=== PATIENT | male | born 1955 | race Caucasian/White ===

== ENCOUNTER 2017-07-28 08:28 | Emergency (ER) | payer BC ==
--- NOTE | 2017-07-28 08:32 | UC ---
Ear Complaint HPI - HPI Summary HPI Summary: 62 year old male presents with bilateral ear cerumen. - History of Current Complaint Stated Complaint: RIGHT EAR COMPLAINT Time Seen by Provider: 07/28/17 08:31 Hx Obtained From: Patient Onset/Duration: Sudden Onset Severity Initially: Moderate Severity Currently: Moderate Pain Scale Used: 0-10 Numeric - 1 - Allergies/Home Medications Allergies/Adverse Reactions: Allergies Allergy/AdvReac Type Severity Reaction Status Date / Time No Known Allergies Allergy Verified 07/28/17 08:37 PMH/Surg Hx/FS Hx/Imm Hx Previously Healthy: Yes - Surgical History Surgical History: None - Family History Known Family History: Positive: None - Social History Alcohol Use: twice a month in the Summer only Substance Use Type: None Type: Cigarettes Amount Used/How Often: 1 PPD Length of Time of Smoking/Using Tobacco: 30 Years Have You Smoked in the Last Year: Yes Household Exposure Type: Cigarettes Review of Systems Constitutional: Negative Skin: Negative Eyes: Negative ENT: Ear Ache Respiratory: Negative Cardiovascular: Negative Gastrointestinal: Negative Genitourinary: Negative Motor: Negative Neurovascular: Negative Musculoskeletal: Negative Neurological: Negative Psychological: Negative All Other Systems Reviewed And Are Negative: Yes Physical Exam Triage Information Reviewed: Yes Vital Signs Reviewed: Yes Eye Exam: Normal ENT: Positive: Other: - bilateral ear cerumen impaction Dental Exam: Normal Neck exam: Normal Neck: Positive: 1 Respiratory Exam: Normal Cardiovascular Exam: Normal Abdominal Exam: Normal Musculoskeletal Exam: Normal Neurological Exam: Normal Psychological Exam: Normal Skin Exam: Normal Ear Complaint Course/Dx - Differential Dx/Diagnosis Provider Diagnoses: bilateral ear cerumen impaction Discharge - Discharge Plan Condition: Stable Disposition: HOME Prescriptions: Neomyc/Polym/HC 1% OTIC SUSP* [Cortisporin Otic Susp 1%*] 4 drop BOTH EARS QID # 1 btl Patient Education Materials: Otitis Externa (ED), Cerumen Impaction (ED) Referrals: Vadim Dykes MD [Primary Care Provider] -
[2017-07-28 08:38] VITALS: BP 133/83
== END 2017-07-28 09:11 | disposition home or self-care (01) ==
LOC: UCCORT 08:28
DX: H61.23 Impacted cerumen, bilateral (principal); F17.210 Nicotine dependence, cigarettes, uncomplicated
CPT/HCPCS: 99213; G0463

== ENCOUNTER 2017-11-07 17:58 | Emergency (ER) | payer BC ==
--- NOTE | 2017-11-07 18:13 | UC ---
Shortness of Breath HPI - HPI Summary HPI Summary: Mr. Phan is a 62 yo male presents to with SO. Pt states this morning developed discomfort under his left rib, LUQ and has developed SOB since this time. Pt denies cough. No fevers, chills. No n/v/d. no CP. Pt without h/o similar. No trauma. No analgesia taken. At triage, pt's room air oxygen was reported to be 85%. No sick contact. Do did not get flu vaccine Pt with 1/2 ppd tobacco Pt's medications reviewed this visit - History of Current Complaint Chief Complaint: UCRespiratory Stated Complaint: ABD PAIN,DIFFICULTY BREATHING Time Seen by Provider: 11/07/17 18:06 Hx Obtained From: Patient Onset/Duration: Sudden Onset Timing: Constant Dyspnea At: Exertion Associated Signs & Symptoms: Positive: Cough (Nonproductive) - Allergy/Home Medications Allergies/Adverse Reactions: Allergies Allergy/AdvReac Type Severity Reaction Status Date / Time No Known Allergies Allergy Verified 07/28/17 08:37 PMH/Surg Hx/FS Hx/Imm Hx Previously Healthy: Yes - Surgical History Surgical History: None - Social History Occupation: Retired Lives: With Family Alcohol Use: Occasionally Substance Use Type: None Smoking Status (MU): Current Every Day Smoker - 1/2 ppd Type: Cigarettes Amount Used/How Often: 1 PPD Length of Time of Smoking/Using Tobacco: 30 Years Have You Smoked in the Last Year: Yes Household Exposure Type: Cigarettes - Immunization History Most Recent Influenza Vaccination: 06/2017 Review of Systems Constitutional: Negative Respiratory: Shortness Of Breath Cardiovascular: Other - left lower rib pain, left upper abd pain All Other Systems Reviewed And Are Negative: Yes Physical Exam Triage Information Reviewed: Yes Appearance: Pain Distress Vital Signs: Initial Vital Signs Pulse Ox 87 11/07/17 17:58 Vital Signs Reviewed: Yes Eye Exam: Normal ENT Exam: Normal ENT: Positive: Normal ENT inspection, Hearing grossly normal, Pharynx normal Dental Exam: Normal Neck exam: Normal Neck: Positive: Supple, Nontender, No Lymphadenopathy Respiratory: Positive: Other: - inncreased WOB. + BS throughout worse with movement - improves with rest no accessory muscle use no pain with palpation lower ribs, abdomen - pt holds with some discomfort with deep breath Cardiovascular Exam: Normal Cardiovascular: Positive: RRR, No Murmur, Pulses Normal, Other: - + trace edema b/l LE Abdominal Exam: Normal Abdomen Description: Positive: Nontender, No Organomegaly, Soft Bowel Sounds: Positive: Present Musculoskeletal Exam: Normal Neurological Exam: Normal Neurological: Positive: Alert Psychological Exam: Normal Psychological: Positive: Normal Response To Family Skin Exam: Normal Diagnostics - EKG Cardiac Rate: NL, Other Rate Cardiac Rhythm: Sinus: Normal - 81, Other Rhythm: New - RBBB - new from 12/21/2012 ST Segment: Normal Shortness of Breath Dx - Course Course Of Treatment: PT presents with progressive SOB since this morning also with LUQ abd pain. Pt without other symptoms. Pt denies recent sick contact. No fevers, chills, rash. Pt noted to be hypoxic at triage. Pt with ikncreased WOB with any movement, activity. Will place on O2. saline lock. EkG. transfer to ED by EMS - pt in agreement with plan - Differential Dx/Diagnosis Provider Diagnoses: hypoxia, SOB Discharge - Discharge Plan Condition: Fair Disposition: TRANS HIGHER LVL OF CARE FAC Referrals: No Primary Care Phys,NOPCP [Primary Care Provider] -
[2017-11-07 18:39] VITALS: BP 116/70
== END 2017-11-07 18:52 | disposition short-term general hospital (02) ==
LOC: UCEAST 17:58
DX: R09.02 Hypoxemia (principal); R06.02 Shortness of breath; R10.12 Left upper quadrant pain; R07.81 Pleurodynia; R05 Cough; I45.10 Unspecified right bundle-branch block; F17.210 Nicotine dependence, cigarettes, uncomplicated
CPT/HCPCS: 93005; 99213; G0463

== ENCOUNTER 2017-11-07 19:10 | Observation (INO) | payer BC ==
[2017-11-07] MEDS ORDERED: NS 0.9% 1000 ML* 1,000 ML IV ONE ×2 (19:33→19:35)
--- NOTE | 2017-11-07 20:12 | RAD ---
INDICATION: Shortness of breath. COMPARISON: Most recent comparison chest x-ray is dated December 21, 2012 TECHNIQUE: Single AP portable view of the chest was obtained. FINDINGS: Image quality is compromised due to the relative inferiority of a portable chest x-ray. The heart and mediastinum exhibit normal size and contour. The lungs are grossly clear. There is no evidence of a large pleural effusion. Visualized bones are normal for the patient's age. IMPRESSION: No radiographic evidence for acute cardiopulmonary abnormality on this portable chest x-ray.
[2017-11-07 20:13] LABS: ABS Basophils 0 10^3/ul (0-0.2); ABS Eosinophils 0.1 10^3/ul (0-0.6); ABS Lymphocytes 1.7 10^3/ul (1.0-4.8); ABS Nucleated RBC 0 10^3/ul; Eosinophil % 0.8 % (0-6); Hematocrit 46 % (42-52); Hemoglobin 15.7 g/dl (14.0-18.0); Mean Corpuscular HGB Conc 34 g/dl (31-36); Mean Corpuscular Hemoglobin 30 pg (27-31); Mean Corpuscular Volume 88 fL (80-94); Mean Platelet Volume 8 um3 (7.4-10.4); Nucleated Red Blood Cells % 0.1; Platelet Count 174 10^3/ul (150-450); Red Blood Count 5.19 10^6/ul (4.0-5.4); Red Cell Distribution Width 13 % (10.5-15); White Blood Count 9.8 10^3/ul (3.5-10.8)
[2017-11-07 20:26] LABS: EGFR Non-African American 63.6 (>60)
[2017-11-07 20:30] LABS: INR 1.02 (0.77-1.02)
[2017-11-07] MEDS ORDERED: Iohexol 350* (CONTRAST) 500 ML MDV IV ONE (21:35)
[2017-11-07 22:04] LABS: Urine Appearance Clear; Urine Blood Negative (Negative); Urine Color Yellow; Urine Ketones Negative (Negative); Urine Protein Negative (Negative); Urine Specific Gravity 1.016 (1.010-1.030); Urine Urobilinogen Negative (Negative)
[2017-11-07] MEDS ORDERED: HYDROmorphone INJ* 1 MG/ML CARPUJECT SYRINGE ONE (22:45)
[2017-11-07] MEDS ORDERED: Ondansetron INJ* 2 MG/ML VIAL ONE (22:45)
[2017-11-07] MEDS ORDERED: HYDROmorphone INJ* 1 MG/ML CARPUJECT SYRINGE IV SLOW PU ONE (22:46)
[2017-11-07] MEDS ORDERED: Ondansetron INJ* 2 MG/ML VIAL IV ONE (22:46)
[2017-11-08] MEDS ORDERED: Enoxaparin(*) 100 MG/ML SYR ONE (01:31)
[2017-11-08] MEDS ORDERED: Enoxaparin(*) 150 MG/ML 1 ML SYRINGE SUBCUT ONE (02:00)
--- NOTE | 2017-11-08 02:10 | ED ---
Georgi George Nilda, scribed for Mainor Spann MD on 11/07/17 at 1939 . Abdominal Pain/Male - HPI Summary HPI Summary: This patient is a 62 year old M BIBA accompanied by with a chief complaint of severe constant LUQ pain since last night. The patient rates the pain 8/10 in severity. Symptoms aggravated by deep inspiration and movement, but alleviated by rest. Patient reports low grade fever, and denies SOB. Pt states hes not on daily medications and has no PSHx. Pt is a smoker. - History of Current Complaint Chief Complaint: EDAbdPain Stated Complaint: SOB Time Seen by Provider: 11/07/17 19:28 Hx Obtained From: Patient Onset/Duration: Sudden Onset, Lasting Days - yesterday, Still Present Timing: Constant Severity Currently: Severe Pain Intensity: 8 Pain Scale Used: 0-10 Numeric Location: Discrete At: LUQ Radiates: No Aggravating Factor(s): Movement, Deep Breaths Alleviating Factor(s): Other: - rest Associated Signs And Symptoms: Positive: Fever - Allergies/Home Medications Allergies/Adverse Reactions: Allergies Allergy/AdvReac Type Severity Reaction Status Date / Time No Known Allergies Allergy Verified 11/07/17 18:24 PMH/Surg Hx/FS Hx/Imm Hx Respiratory History: Reports: Other Respiratory Problems/Disorders - cough with syncope EENT History: Denies: Hx Deafness Infectious Disease History: No Infectious Disease History: Denies: Traveled Outside the [place] in Last 30 Days - Family History Known Family History: Negative: Hypertension, Diabetes - Social History Occupation: Employed Part-time Alcohol Use: Occasionally Substance Use Type: Reports: None Smoking Status (MU): Current Every Day Smoker Type: Cigarettes Amount Used/How Often: 1 PPD Length of Time of Smoking/Using Tobacco: 30 Years Have You Smoked in the Last Year: Yes Review of Systems Positive: Fever - low grade Negative: Shortness Of Breath Positive: Abdominal Pain - LUQ pain All Other Systems Reviewed And Are Negative: Yes Physical Exam - Summary Physical Exam Summary: VITAL SIGNS: Reviewed. GENERAL: Patient is a morbidly obese male who is lying comfortable in the stretcher. Patient is not in any acute respiratory distress. HEAD AND FACE: No signs of trauma. No ecchymosis, hematomas or skull depressions. No sinus tenderness. EYES: PERRLA, EOMI x 2, No injected conjunctiva, no nystagmus. EARS: Hearing grossly intact. Ear canals and tympanic membranes are within normal limits. MOUTH: Oropharynx within normal limits. NECK: Supple, trachea is midline, no adenopathy, no JVD, no carotid bruit, no c- spine tenderness, neck with full ROM. CHEST: Symmetric, no tenderness at palpation LUNGS: Clear to auscultation bilaterally. No wheezing or crackles. Decreased breath sounds bilat. CVS: Regular rate and rhythm, S1 and S2 present, no murmurs or gallops appreciated. ABDOMEN: Soft, non-tender. Mild abd distention. No rebound no guarding, and no masses palpated. Bowel sounds are normal. EXTREMITIES: FROM in all major joints, no edema, no cyanosis or clubbing. NEURO: Alert and oriented x 3. No acute neurological deficits. Speech is normal and follows commands. SKIN: Dry and warm Triage Information Reviewed: Yes Vital Signs On Initial Exam: Initial Vitals Temp Pulse Resp BP Pulse Ox 98.3 F 78 16 142/83 96 11/07/17 19:25 11/07/17 19:25 11/07/17 19:25 11/07/17 19:25 11/07/17 19:25 Vital Signs Reviewed: Yes Diagnostics - Vital Signs Vital Signs Temp Pulse Resp BP Pulse Ox 11/07/17 19:25 98.3 F 78 16 142/83 96 - Laboratory Result Diagrams: 11/07/17 19:55 11/07/17 19:55 Lab Statement: Any lab studies that have been ordered have been reviewed, and results considered in the medical decision making process. - Radiology CXR Radiology Interpretation Completed By: Radiologist - CXR reveals no radiographic evidence for acute cardiopulmonary abnormality on this portable chest x-ray. Dr. Spann has reviewed this radiology report. - CT CTA Chest/Abd/Pel CT Interpretation Completed By: Radiologist - Chest: No definite PE, but lower lobe evaluation significantly limited by motion artifact. If there is continued concern for PE, advise repeat CTA. No aortic dissection or aneurysm. No pneumonia. Trace left pleural fluid. Calcified bilateral hilar lymph nodes. Abdomen/Pelvis: No aortic dissection or aneurysm. No bowel obstruction, colitis , diverticulitis, free fluid or free air. Normal appendix. Unremarkable pancreas and kidneys. Cholelithiasis. Diastasis recti and small superimposed umbilical hernia containing fat. Small bilateral inguinal region hernias containing fat. Dr. Spann has reviewed this report. - EKG 2001 Cardiac Rate: NL EKG Rhythm: Sinus Rhythm - 75 bpm EKG Interpretation: Normal [place], RBBB Re-Evaluation - Re-Evaluation First Eval Re-Evaluation Time: 01:05 Comment: Reviewed labs and imaging with patient and plan to admit. Abdominal Pain Fem Course/Dx - Course Assessment/Plan: Pt is 62 y/o M who came to ED c/o left sided pleuritic CP. Pt was hypoxic. EKG showed signs of possible PE. CT chest was nonconclusive because of artifact. Pt given Lovenox. 0124 Dr. Thompson (hospitalist) agrees to admit. Pt admitted for further evaluation and possible VQ scan in morning. Dx left pleuritic CP, rule out PE. - Diagnoses Provider Diagnoses: Pleuritic chest pain, rule out pulmonary embolism - Provider Notifications Discussed Care Of Patient With: Norberto Thompson - hospitalist Time Discussed With Above Provider: 01:24 Instructed by Provider To: Admit As Inpatient Discharge - Discharge Plan Condition: Stable Disposition: ADMITTED TO [facility] Referrals: No Primary Care Phys,NOPCP [Primary Care Provider] - The documentation as recorded by the Georgi fischer Nilda accurately reflects the service I personally performed and the decisions made by Maria Ines jay Abdul, MD.
[2017-11-08] MEDS ORDERED: Iohexol 350* (CONTRAST) 500 ML MDV IV ONE (04:26)
[2017-11-08] MEDS ORDERED: oxyCODONE TAB* 5 MG TAB PO PRN (05:41)
[2017-11-08] MEDS ORDERED: Albuterol 2.5 MG/3 ML NEB.SOL* (0.083%) INH PRN (05:41)
[2017-11-08] MEDS ORDERED: Ondansetron INJ* 2 MG/ML VIAL IV PRN (05:41)
[2017-11-08] MEDS ORDERED: Acetaminophen TAB* 325 MG PO PRN (05:41)
[2017-11-08] MEDS ORDERED: CMCS: Melatonin (NF) 3 MG TAB PO PRN (05:41)
[2017-11-08] MEDS ORDERED: NS 0.9% 1000 ML* 1,000 ML IV SCH (05:45)
--- NOTE | 2017-11-08 05:45 | HP ---
H&P (Free Text) History and Physical: PCP: none Date/Time: 11/08/2017 0420 CC: chest pain, SOB HPI: Mr Phan is a 62YO healthy male presenting for onset of inferior L chest pain which awoke him from sleep overnight 11/06 - 11/07 and gradually worsened throughout the day ranging from 3-9/10 in severity. He denies cough, congestion , F/C, sweats, N/V, diarrhea, light-headedness, palpitations, or other issues. Pain meds have made it better, but taking a deep breath makes it worse. He denies pain or swelling of the lower extremities, no recent travel, and no change in activity or injuries. ED evaluation is notable for a d-dimer of 483 & a CTA chest non-diagnostic for the LLL 2nd sub-optimal timing. ECG shows sinus RBBB rate 75, Q-waves in II/III/AVF, no ischemia. 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 Father passed at 54 2nd suicide. ROS: as above, otherwise reviewed and all were negative vitals: Vital Signs Temp 36.8 C 11/08/17 03:17 Pulse 82 11/08/17 03:17 Resp 16 11/08/17 03:17 BP 134/72 11/08/17 03:17 Pulse Ox 100 11/08/17 03:17 Intake & Output 11/07/17 11/07/17 11/08/17 11:59 23:59 11:59 Intake Total 1000 Balance 1000 Weight 145.15 kg Intake: IV Fluids 1000 Constitutional: NAD, normally developed, morbidly obese white male HEENM: atraumatic; sclera/conjunctiva: anicteric/clear; hearing: clinically intact; oropharynx: clear, mucosa moist Neck: soft tissue: non-tender; thyroid: normal Pulmonary: clear to auscultation bilaterally, good aeration, no accessory muscle use CV: RR/RR, normal S1S2, no carotid bruit, no jugular venous distention, 2+ B DP/ PT, trace BLE edema Abdominal: soft, non-distended, non-tender, no rebound/guarding/rigidity, normoactive bowel sounds, no hepatosplenomegaly or masses, no costovertebral angle tenderness Musculoskeletal: general: grossly intact; gait: stable Integumental: normal appearance and texture of skin over inferior L chest Psychiatric orientation: AA&O to PPS affect: calm mood: cooperative eye contact: good content: reliable responses: timely insight: good Testing: Lab Results 11/07/17 11/07/17 11/07/17 Range/Units 19:55 19:55 19:55 WBC (3.5-10.8) 10^3/ul RBC (4.0-5.4) 10^6/ul Hgb (14.0-18.0) g/dl Hct (42-52) % MCV (80-94) fL MCH (27-31) pg MCHC (31-36) g/dl RDW (10.5-15) % Plt Count (150-450) 10^3/ul MPV (7.4-10.4) um3 Neut % (Auto) (38-83) % Lymph % (Auto) (25-47) % Ray % (Auto) (1-9) % Eos % (Auto) (0-6) % Baso % (Auto) (0-2) % Absolute Neuts (auto) (1.5-7.7) 10^3/ul Absolute Lymphs (auto) (1.0-4.8) 10^3/ul Absolute Monos (auto) (0-0.8) 10^3/ul Absolute Eos (auto) (0-0.6) 10^3/ul Absolute Basos (auto) (0-0.2) 10^3/ul Absolute Nucleated RBC 10^3/ul Nucleated RBC % INR (Anticoag Therapy) 1.02 (0.77-1.02) APTT 30.0 (26.0-36.3) seconds D-Dimer, Quantitative 483 H (Less Than 230) ng/mL Sodium 138 (133-145) mmol/L Potassium 3.9 (3.5-5.0) mmol/L Chloride 104 (101-111) mmol/L Carbon Dioxide 28 (22-32) mmol/L Anion Gap 6 (2-11) mmol/L BUN 14 (6-24) mg/dL Creatinine 1.17 (0.67-1.17) mg/dL Est GFR ( Amer) 81.8 (>60) Est GFR (Non-Af Amer) 63.6 (>60) BUN/Creatinine Ratio 12.0 (8-20) Glucose 111 H (70-100) mg/dL Lactic Acid (0.5-2.0) mmol/L Calcium 9.7 (8.6-10.3) mg/dL Magnesium 1.8 L (1.9-2.7) mg/dL Total Bilirubin 0.90 (0.2-1.0) mg/dL AST 13 (13-39) U/L ALT 16 (7-52) U/L Alkaline Phosphatase 70 (34-104) U/L Troponin I 0.01 (<0.04) ng/mL C-Reactive Protein 37.66 H (< 5.00) mg/L B-Natriuretic Peptide 26 ( - 100) pg/mL Total Protein 7.0 (6.4-8.9) g/dL Albumin 3.8 (3.2-5.2) g/dL Globulin 3.2 (2-4) g/dL Albumin/Globulin Ratio 1.2 (1-3) Amylase 18 L (29-103) U/L Lipase 18 (11.0-82.0) U/L Urine Color Urine Appearance Urine pH (5-9) Ur Specific [place] (1.010-1.030) Urine Protein (Negative) Urine Ketones (Negative) Urine Blood (Negative) Urine Nitrate (Negative) Urine Bilirubin (Negative) Urine Urobilinogen (Negative) Ur Leukocyte Esterase (Negative) Urine Glucose (Negative) 11/07/17 11/07/17 11/07/17 Range/Units 19:55 19:55 21:55 WBC 9.8 (3.5-10.8) 10^3/ul RBC 5.19 (4.0-5.4) 10^6/ul Hgb 15.7 (14.0-18.0) g/dl Hct 46 (42-52) % MCV 88 (80-94) fL MCH 30 (27-31) pg MCHC 34 (31-36) g/dl RDW 13 (10.5-15) % Plt Count 174 (150-450) 10^3/ul MPV 8 (7.4-10.4) um3 Neut % (Auto) 71.8 (38-83) % Lymph % (Auto) 17.0 L (25-47) % Ray % (Auto) 10.0 H (1-9) % Eos % (Auto) 0.8 (0-6) % Baso % (Auto) 0.4 (0-2) % Absolute Neuts (auto) 7.0 (1.5-7.7) 10^3/ul Absolute Lymphs (auto) 1.7 (1.0-4.8) 10^3/ul Absolute Monos (auto) 1.0 H (0-0.8) 10^3/ul Absolute Eos (auto) 0.1 (0-0.6) 10^3/ul Absolute Basos (auto) 0 (0-0.2) 10^3/ul Absolute Nucleated RBC 0 10^3/ul Nucleated RBC % 0.1 INR (Anticoag Therapy) (0.77-1.02) APTT (26.0-36.3) seconds D-Dimer, Quantitative (Less Than 230) ng/mL Sodium (133-145) mmol/L Potassium (3.5-5.0) mmol/L Chloride (101-111) mmol/L Carbon Dioxide (22-32) mmol/L Anion Gap (2-11) mmol/L BUN (6-24) mg/dL Creatinine (0.67-1.17) mg/dL Est GFR ( Amer) (>60) Est GFR (Non-Af Amer) (>60) BUN/Creatinine Ratio (8-20) Glucose (70-100) mg/dL Lactic Acid 0.9 (0.5-2.0) mmol/L Calcium (8.6-10.3) mg/dL Magnesium (1.9-2.7) mg/dL Total Bilirubin (0.2-1.0) mg/dL AST (13-39) U/L ALT (7-52) U/L Alkaline Phosphatase (34-104) U/L Troponin I (<0.04) ng/mL C-Reactive Protein (< 5.00) mg/L B-Natriuretic Peptide ( - 100) pg/mL Total Protein (6.4-8.9) g/dL Albumin (3.2-5.2) g/dL Globulin (2-4) g/dL Albumin/Globulin Ratio (1-3) Amylase (29-103) U/L Lipase (11.0-82.0) U/L Urine Color Yellow Urine Appearance Clear Urine pH 5.0 (5-9) Ur Specific [place] 1.016 (1.010-1.030) Urine Protein Negative (Negative) Urine Ketones Negative (Negative) Urine Blood Negative (Negative) Urine Nitrate Negative (Negative) Urine Bilirubin Negative (Negative) Urine Urobilinogen Negative (Negative) Ur Leukocyte Esterase Negative (Negative) Urine Glucose Negative (Negative) ECG, personally reviewed: sinus RBBB rate 75, Q-waves in II/III/AVF, no ischemia CXR, personally reviewed: IMPRESSION: No radiographic evidence for acute cardiopulmonary abnormality on this portable chest x-ray. Impression: morbidly obese 62M presenting with pleuritic inferior L chest pain, SOB, & elevated d-dimer; CTA chest sub-optimal timing for LLL DIAGNOSIS & PLAN Primary pleuritic chest pain, SOB, & elevated d-dimer; suspect PE : enoxaparin SQ 1mg/kg given in ED at 0200 : V/Q in AM : BLE venous US in AM : supplemental oxygen : pain control : telemetry : trend troponin : supportive care Admission Rational: observation for r/o PE DVTp: enoxaparin SQ Code Status: full
[2017-11-08] MEDS ORDERED: Omeprazole CAP* 20 MG PO SCH (06:00)
[2017-11-08 06:38] LABS: Hematocrit 45 % (42-52); Hemoglobin 15.6 g/dl (14.0-18.0); Mean Corpuscular HGB Conc 35 g/dl (31-36); Mean Corpuscular Hemoglobin 31 pg (27-31); Mean Corpuscular Volume 89 fL (80-94); Mean Platelet Volume 8 um3 (7.4-10.4); Platelet Count 191 10^3/ul (150-450); Red Blood Count 5.11 10^6/ul (4.0-5.4); Red Cell Distribution Width 14 % (10.5-15); White Blood Count 10.5 10^3/ul (3.5-10.8)
[2017-11-08 07:03] LABS: EGFR Non-African American 51.3 (>60)
--- NOTE | 2017-11-08 08:18 | RAD ---
HISTORY: Abdominal pain, pleuritic pain COMPARISONS: December 21, 2012, April 11 June 25, 2014 TECHNIQUE: Multiple contiguous axial CT scans were obtained of the chest, abdomen, and pelvis after the administration of intravenous contrast. Coronal and sagittal multiplanar reformations are submitted for review.. Oral contrast was administered. FINDINGS: Evaluation is limited by patient breathing motion artifact. This limits evaluation of the pulmonary artery segmental branches to the lower lobes bilaterally. CHEST NECK AND THYROID: The lower neck and thyroid are unremarkable. CHEST WALL: There is no lower cervical, axillary, or supraclavicular lymphadenopathy by size criteria. HEART AND PERICARDIUM: The heart is unremarkable. AORTA AND PULMONARY VASCULATURE: There is no appreciable pulmonary arterial filling defect to suggest pulmonary was in, though evaluation of the segmental branches to the lower lobes is limited by patient breathing motion artifact. The aorta is unremarkable. MEDIASTINUM: There is no mediastinal lymphadenopathy by size criteria. JAXON: There is no hilar lymphadenopathy by size criteria. AIRWAY AND ESOPHAGUS: The airway is unremarkable, without endobronchial filling defect. The esophagus is grossly normal. LUNG PARENCHYMA: The lungs are clear. PLEURA: There is a trace left pleural effusion. BONES AND SOFT TISSUES: Degenerative changes are noted of the spine ABDOMEN/PELVIS: LIVER: The liver is normal in shape, size, contour, and attenuation. BILE DUCTS: There is no intrahepatic or extrahepatic biliary dilatation. GALLBLADDER: Multiple gallstones are noted. There is no pericholecystic inflammatory change. PANCREAS: The pancreas is normal, without mass or ductal dilatation. SPLEEN: Normal in size and appearance. UPPER GI TRACT: Evaluation of the gastrointestinal tract is limited by incomplete gastric distention. The upper GI tract is unremarkable. SMALL BOWEL & MESENTERY: The small bowel is normal in contour, course, and caliber. There is no obstruction or dilatation. COLON: The colon is normal in contour, course, caliber. There is no pericolonic inflammatory change. There is a tubular, vermiform, hollow viscus that is blind ending, and originates from the cecum, consistent with a normal appendix. There is no periappendiceal inflammatory change. ADRENALS: Normal bilaterally. KIDNEYS: The kidneys are normal in shape, size, contour, and axis. There is no hydronephrosis or nephrolithiasis. BLADDER: The bladder is incompletely distended but is grossly normal. PELVIC ORGANS: The prostate gland is normal. The seminal vesicles are symmetric. AORTA: The aorta is normal. IVC: Unremarkable LYMPH NODES: There is no lymphadenopathy by size criteria. ABDOMINAL WALL: There is diastasis recti. There are small bilateral fat-containing inguinal hernias. BONES AND SOFT TISSUES: Degenerative changes are noted along the spine. OTHER: None IMPRESSION: 1. NO PULMONARY ARTERIAL FILLING DEFECT TO SUGGEST PULMONARY EMBOLISM; HOWEVER, EVALUATION OF THE SEGMENTAL BRANCHES OF THE LOWER LOBES BILATERALLY IS LIMITED BY PATIENT BREATHING MOTION ARTIFACT. 2. CHOLELITHIASIS WITHOUT PERICHOLECYSTIC INFLAMMATORY CHANGE. 3. SMALL BILATERAL FAT-CONTAINING INGUINAL HERNIAS.
[2017-11-08] MEDS ORDERED: Docusate CAP* 100 MG PO SCH (09:00)
--- NOTE | 2017-11-08 10:52 | RAD ---
HISTORY: Chest pain, shortness of breath, elevated d-dimer COMPARISONS: None relevant TECHNIQUE: Multiple transverse and longitudinal ultrasound images were obtained of the bilateral lower extremities from the level of the common femoral vein inferiorly through to the infrapopliteal veins using grayscale, color Doppler, and spectral Doppler imaging with and without compression and with augmentation. FINDINGS: VEINS: The venous system of the bilateral lower extremities is compressible throughout its course, with normal flow on color Doppler imaging and normal response to augmentation on spectral Doppler imaging. SOFT TISSUES: Unremarkable. OTHER FINDINGS: None. IMPRESSION: NO RIGHT LOWER EXTREMITY DEEP VEIN THROMBOSIS. NO LEFT LOWER EXTREMITY DEEP VEIN THROMBOSIS
[2017-11-08 11:31] VITALS: BP 120/58
--- NOTE | 2017-11-08 14:17 | RAD ---
INDICATION: Left-sided chest pain COMPARISON: CTA chest/abdomen/pelvis November 07, 2017 TECHNIQUE: Following the administration of 10.95 millicuries of xenon gas, anterior and posterior deep breath, equilibrium, and washout phase imaging was performed. Following the intravenous administration of 13.15 millicuries of technetium 99m, MAA, anterior, posterior, lateral, and oblique imaging of the chest was performed. FINDINGS: Ventilation images show normal ventilation. The perfusion images show no segmentally absent areas of ventilation/perfusion mismatch. The probability of acute pulmonary embolus is low. IMPRESSION: LOW PROBABILITY FOR ACUTE PULMONARY EMBOLUS.
--- NOTE | 2017-11-09 02:40 | DS ---
CC: Omar Tam MD * DISCHARGE SUMMARY: DATE OF ADMISSION: 11/08/17 DATE OF DISCHARGE: 11/08/17 PRIMARY DIAGNOSIS: Chest pain in the setting of potential left lower lobe pneumonia. SECONDARY DIAGNOSIS: Morbid obesity. MEDICATIONS ON DISCHARGE: Azithromycin, Z-[place] 500 mg on the first day, then 250 mg for 4 additional days. PERTINENT LABORATORY DATA: White blood cell count on day of discharge 10.5, D- dimer 483, BUN 18, creatinine 1.4 on the day of discharge, troponin I 0.001 and 0.00. CRP 37. PERTINENT IMAGING PERFORMED DURING HOSPITAL STAY: 1. Lung V/Q scan: Low probability for acute pulmonary embolism. 2. CTA, chest abdomen, and pelvis. Impression: No pulmonary arterial filling defect to suggest pulmonary embolism; however, evaluation of the segmental branches of the lower lobes bilaterally was limited by the patient's breathing motion artifact. Cholelithiasis without pericholecystic inflammatory change. Small bilateral fat containing inguinal hernias. 3. Venous Doppler study lower extremities, no evidence of DVTs. HISTORY OF PRESENT ILLNESS AND HOSPITAL COURSE: This is a 62-year-old man, woke up in the middle of the night with what was described as left inferior chest wall pain really at the junction of his left upper abdominal quadrant and his lower chest wall described as sharp and stabbing in nature, presented to the hospital and admitted for further workup. There was concern for pulmonary embolism, underwent a CTA as noted above, which was notable for absence of pulmonary embolism; however, incomplete evaluation of the lower lobes for which a V/Q scan was performed without indication of any pulmonary embolism. The patient does note he has a history of nephrolithiasis, which would be compatible with the patient's pain; however, the patient's urinalysis was clear without any evidence of microscopic hematuria or other evidence of nephrolithiasis. He had no hydronephrosis noted and CT of his abdomen and pelvis, although complete evaluation for a stone could not be accomplished given the administration of contrast. I reviewed the CTA of his chest with Dr. Kerr with particular attention to the left lower lobe costophrenic angle, while it looks like that can be developing consolidation, although atelectasis would also be clearly on the differential in the setting of poor inspiration. Given this finding, I did prescribe the patient 5-day course of azithromycin with clear instructions to follow up with his primary care provider. Probability for pneumonia at this point is low; however, no other working diagnosis, I thought it would be prudent to treat the only identifiable source for this patient's pain. At followup, please; 1. Evaluate for continued pain and/or resolution. 2. Repeat BMPs, evaluate for resolution of kidney dysfunction. Discharge creatinine is 1.4. 3. No other specific labs or vitals. Reasons to return to the hospital including, but not limited to recurrent or worsening symptoms, chest pain, shortness of breath, nausea, vomiting, lightheadedness, loss of consciousness, fevers, chills, night sweats, decreased or increased urine output, hematuria, inability to tolerate medications were discussed with the patient and his , they acknowledged understanding. TIME SPENT: Greater than 60 minutes were spent on discharge of the patient, greater than half was spent [id number] with the patient. [id number]/CPS #: [id number] MTDD
== END 2017-11-08 16:45 | disposition home or self-care (01) ==
LOC: ED 19:10 → MEDTELE 11-08 04:21
PROVIDERS: ADMIT Hospitalist; ATTEND Internal Medicine
DX: R07.89 Other chest pain (principal); E66.01 Morbid (severe) obesity due to excess calories; R10.12 Left upper quadrant pain; R50.9 Fever, unspecified; Z87.09 Personal history of other diseases of the respiratory system; F17.210 Nicotine dependence, cigarettes, uncomplicated
CPT/HCPCS: 36415; 71045; 71275; 74177; 78582; 80048; 80053; 81003; 82150; 83605; 83690; 83735; 83880; 84484; 85025; 85027; 85379; 85610; 85730; 86140; 93005; 93970; 96374; 96375; 99283; 99406; A9270-GY; A9540; A9558; G0378; J1170; J1650; J2405; Q9967

== ENCOUNTER 2021-09-09 17:52 | Observation (INO) ==
[2021-09-09 20:29] LABS: Venous Bicarbonate HCO3 24.8 mmol/L (24-28)
[2021-09-09 20:30] LABS: ABS Lymphocytes 0.7 10^3/ul (1.0-4.8); ABS Monocytes 0.3 10^3/ul (0-0.8); ABS Neutrophils 2.6 10^3/ul (1.5-7.7); Hematocrit 44 % (42-52); Lymphocyte % 18.8 %; Mean Corpuscular HGB Conc 34 g/dL (31-36); Mean Corpuscular Hemoglobin 30 pg (27-31); Mean Corpuscular Volume 88 fL (80-94); Mean Platelet Volume 8.2 fL (7.4-10.4); Nucleated Red Blood Cells % 0.2; Platelet Count 126 10^3/uL (150-450); Red Blood Count 5.01 10^6 /uL (4.18-5.48); Red Cell Distribution Width 14 % (10-15); White Blood Count 3.7 10^3/uL (3.5-10.8)
[2021-09-09 20:38] LABS: Rapid COVID-19 Molecular Detected (Undetected)
[2021-09-09 20:47] LABS: Influenza A Molecular Negative (Negative); Influenza B Molecular Negative (Negative)
[2021-09-09 20:55] LABS: Activated Partial Thrombo Time 30.8 seconds (26.0-38.0); INR 1.18 (0.86-1.15)
[2021-09-09 20:59] LABS: Albumin 3.6 g/dL (3.2-5.2); Albumin/Globulin Ratio 1.1 (1-3); C Reactive Protein 63.85 mg/L (<8.01); Calcium 8.9 mg/dL (8.6-10.3); Globulin 3.2 g/dL (2-4); Total Bilirubin 0.6 mg/dL (0.2-1.0); Total Protein 6.8 g/dL (6.4-8.9)
[2021-09-09 21:01] LABS: Troponin I 0.01 ng/mL (<0.03)
[2021-09-09 22:15] LABS: Potassium 3.9 mmol/L (3.5-5.0)
[2021-09-10] MEDS ORDERED: Heparin 5000 UNITS/ML 1 mL VIAL SUBCUT SCH (06:00)
[2021-09-10 06:55] LABS: ABS Lymphocytes 0.8 10^3/ul (1.0-4.8); ABS Monocytes 0.2 10^3/ul (0-0.8); ABS Neutrophils 2.5 10^3/ul (1.5-7.7); Hematocrit 42 % (42-52); Hemoglobin 14.9 g/dL (14.0-18.0); Lymphocyte % 21.5 %; Mean Corpuscular HGB Conc 35 g/dL (31-36); Mean Corpuscular Hemoglobin 31 pg (27-31); Mean Corpuscular Volume 87 fL (80-94); Mean Platelet Volume 8.1 fL (7.4-10.4); Nucleated Red Blood Cells % 0.1; Platelet Count 134 10^3/uL (150-450); Red Blood Count 4.85 10^6 /uL (4.18-5.48); Red Cell Distribution Width 14 % (10-15); White Blood Count 3.6 10^3/uL (3.5-10.8)
[2021-09-10 07:09] LABS: INR 1.16 (0.86-1.15)
[2021-09-10 07:11] LABS: Calcium 8.6 mg/dL (8.6-10.3); Potassium 3.8 mmol/L (3.5-5.0)
[2021-09-10] MEDS ORDERED: Remdesivir 100 mg Vial 200 MG in NS 0.9% 250 ml 210 ML IV ONE (08:00)
[2021-09-10] MEDS ORDERED: Enoxaparin 40 MG/0.4 ML SYR SUBCUT SCH (08:00)
[2021-09-10 08:39] VITALS: BP 110/70
[2021-09-11] MEDS ORDERED: Remdesivir 100 mg Vial 100 MG in NS 0.9% 250 ml 230 ML IV SCH (09:00)
== END 2021-09-10 12:30 | disposition home or self-care (01) ==
LOC: ED 17:52 → MED 17:52 → SUATTDRO 22:27 → MED 09-10 03:02
PROVIDERS: ADMIT Hospitalist; ATTEND Internal Medicine

== ENCOUNTER 2021-09-11 18:40 | Inpatient (IN) ==
[2021-09-11] MEDS ORDERED: Dexamethasone IV 4 MG/ML VIAL 1 ml VIAL IV SLOW PU ONE (20:26)
[2021-09-11 20:37] LABS: PCO2 Arterial 31 mmHg (35-45); PO2 Arterial 80 mmHg (80-100)
[2021-09-11 20:51] LABS: ABS Lymphocytes 0.8 10^3/ul (1.0-4.8); ABS Monocytes 0.7 10^3/ul (0-0.8); ABS Neutrophils 9.2 10^3/ul (1.5-7.7); Hematocrit 44 % (42-52); Hemoglobin 15.5 g/dL (14.0-18.0); Lymphocyte % 7.3 %; Mean Corpuscular HGB Conc 35 g/dL (31-36); Mean Corpuscular Hemoglobin 30 pg (27-31); Mean Corpuscular Volume 87 fL (80-94); Mean Platelet Volume 7.8 fL (7.4-10.4); Nucleated Red Blood Cells % 0.1; Platelet Count 196 10^3/uL (150-450); Red Blood Count 5.11 10^6 /uL (4.18-5.48); Red Cell Distribution Width 14 % (10-15); White Blood Count 10.8 10^3/uL (3.5-10.8)
[2021-09-11 21:14] LABS: Albumin 3.6 g/dL (3.2-5.2); Albumin/Globulin Ratio 1.1 (1-3); Calcium 9.1 mg/dL (8.6-10.3); Globulin 3.4 g/dL (2-4); Potassium 3.7 mmol/L (3.5-5.0); Total Bilirubin 0.5 mg/dL (0.2-1.0); Troponin I 0.01 ng/mL (<0.03)
[2021-09-11 22:07] LABS: Urine Appearance Clear; Urine Bilirubin Negative (Negative); Urine Blood 1+ (Negative); Urine Color Yellow; Urine Glucose 2+(150 mg/dL) (Negative); Urine Ketones Negative (Negative); Urine Nitrite Negative (Negative); Urine Protein 2+(100 mg/dL) (Negative); Urine Specific Gravity 1.021 (1.002-1.030); Urine Urobilinogen Negative (Negative)
[2021-09-11 22:14] LABS: Urine Bacteria Absent (Absent); Urine Red Blood Cell Trace(0-2/hpf) (Absent); Urine White Blood Cell Trace(0-5/hpf) (Absent)
[2021-09-11] MEDS ORDERED: Iodixanol (CONTRAST) 320 MG/ML 100 ML SDV IV ONE (23:08)
[2021-09-12] MEDS ORDERED: Dextrose 50% Syringe 50 ml 25 GM/50 ML SYRINGE IV PUSH PRN (02:51)
[2021-09-12] MEDS ORDERED: Ondansetron 4 mg VIAL 2 MG/ML 2 ml VIAL IV PRN (02:55)
[2021-09-12 03:11] LABS: INR 1.02 (0.86-1.15)
[2021-09-12] MEDS ORDERED: Remdesivir 100 mg Vial 200 MG in NS 0.9% 250 ml 210 ML IV ONE (03:30)
[2021-09-12] MEDS: Enoxaparin 40 MG/0.4 ML SYR SUBCUT SCH (08:11)
[2021-09-12 10:30] LABS: Hematocrit 44 % (42-52); Hemoglobin 15.1 g/dL (14.0-18.0); Mean Corpuscular HGB Conc 35 g/dL (31-36); Mean Corpuscular Hemoglobin 30 pg (27-31); Mean Corpuscular Volume 87 fL (80-94); Mean Platelet Volume 8.2 fL (7.4-10.4); Platelet Count 203 10^3/uL (150-450); Red Cell Distribution Width 14 % (10-15); White Blood Count 10.6 10^3/uL (3.5-10.8)
[2021-09-12 10:48] LABS: Albumin 3.4 g/dL (3.2-5.2); Calcium 8.9 mg/dL (8.6-10.3); Globulin 3.3 g/dL (2-4); Potassium 3.8 mmol/L (3.5-5.0); Total Bilirubin 0.6 mg/dL (0.2-1.0); Total Protein 6.7 g/dL (6.4-8.9)
[2021-09-12 11:42] LABS: ABS Lymphocytes 0.8 10^3/ul (1.0-4.8); ABS Monocytes 0.5 10^3/ul (0-0.8); ABS Neutrophils 9.3 10^3/ul (1.5-7.7); Lymphocyte % 7.2 %; Nucleated Red Blood Cells % 0.1
[2021-09-12] MEDS: cefTRIAXone 1 gm/50 mL NS BAG 1 GM/50 ML BAG IVPB SCH (12:46)
[2021-09-12] MEDS: BARICITINIB 2 MG PO SCH (12:47)
[2021-09-12] MEDS ORDERED: Azithromycin 500 mg/250 ml NS 500 MG/250 ML BAG IVPB ONE (13:00)
[2021-09-12 22:08] LABS: Ferritin 3836.3 ng/mL (24-336)
[2021-09-13] MEDS: Enoxaparin 40 MG/0.4 ML SYR SUBCUT SCH ×2 (05:35→22:20)
[2021-09-13 07:29] LABS: Hematocrit 42 % (42-52); Hemoglobin 14.6 g/dL (14.0-18.0); Mean Corpuscular HGB Conc 35 g/dL (31-36); Mean Corpuscular Hemoglobin 31 pg (27-31); Mean Corpuscular Volume 88 fL (80-94); Mean Platelet Volume 7.7 fL (7.4-10.4); Platelet Count 213 10^3/uL (150-450); Red Blood Count 4.77 10^6 /uL (4.18-5.48); Red Cell Distribution Width 14 % (10-15); White Blood Count 10.1 10^3/uL (3.5-10.8)
[2021-09-13 07:35] LABS: INR 1.11 (0.86-1.15)
[2021-09-13 07:46] LABS: Albumin 3.2 g/dL (3.2-5.2); Albumin/Globulin Ratio 1.1 (1-3); Calcium 8.9 mg/dL (8.6-10.3); Globulin 2.9 g/dL (2-4); Magnesium 2.1 mg/dL (1.9-2.7); Potassium 3.9 mmol/L (3.5-5.0); Total Bilirubin 0.6 mg/dL (0.2-1.0); Total Protein 6.1 g/dL (6.4-8.9)
[2021-09-13] MEDS: Remdesivir 100 mg Vial 100 MG in NS 0.9% 250 ml 230 ML IV SCH (08:59)
[2021-09-13] MEDS: BARICITINIB 2 MG PO SCH (12:42)
[2021-09-13] MEDS: AZITHROMYCIN 500 MG TAB PO SCH (12:42)
[2021-09-13] MEDS: cefTRIAXone 1 gm/50 mL NS BAG 1 GM/50 ML BAG IVPB SCH (12:43)
[2021-09-13] MEDS ORDERED: Enoxaparin 40 MG/0.4 ML SYR SUBCUT SCH (21:00)
[2021-09-13 22:02] LABS: PCO2 Arterial 29 mmHg (35-45); PO2 Arterial 65 mmHg (80-100)
[2021-09-14 06:39] LABS: Hematocrit 41 % (42-52); Hemoglobin 13.9 g/dL (14.0-18.0); Mean Corpuscular HGB Conc 34 g/dL (31-36); Mean Corpuscular Hemoglobin 30 pg (27-31); Mean Corpuscular Volume 88 fL (80-94); Mean Platelet Volume 7.6 fL (7.4-10.4); Platelet Count 239 10^3/uL (150-450); Red Blood Count 4.65 10^6 /uL (4.18-5.48); Red Cell Distribution Width 14 % (10-15); White Blood Count 11.4 10^3/uL (3.5-10.8)
[2021-09-14 06:58] LABS: C Reactive Protein 9.87 mg/L (<8.01); Calcium 8.8 mg/dL (8.6-10.3); Globulin 2.9 g/dL (2-4); Potassium 4.2 mmol/L (3.5-5.0); Total Bilirubin 0.6 mg/dL (0.2-1.0); Total Protein 5.9 g/dL (6.4-8.9)
[2021-09-14 07:03] LABS: INR 1.12 (0.86-1.15)
[2021-09-14] MEDS: Enoxaparin 40 MG/0.4 ML SYR SUBCUT SCH ×2 (07:35→20:27)
[2021-09-14 08:16] LABS: Erythrocyte Sed Rate 29 mm/Hr (0-19)
[2021-09-14 08:39] LABS: Ferritin 464.9 ng/mL (24-336)
[2021-09-14] MEDS ORDERED: Enoxaparin 40 MG/0.4 ML SYR SUBCUT SCH (09:00)
[2021-09-14] MEDS: Remdesivir 100 mg Vial 100 MG in NS 0.9% 250 ml 230 ML IV SCH (09:01)
[2021-09-14] MEDS: AZITHROMYCIN 500 MG TAB PO SCH (09:41)
[2021-09-14] MEDS ORDERED: Furosemide 40 mg/4 ml IV VIAL IV SLOW PU ONE (09:48)
[2021-09-14] MEDS: BARICITINIB 2 MG PO SCH (11:51)
[2021-09-14] MEDS: cefTRIAXone 1 gm/50 mL NS BAG 1 GM/50 ML BAG IVPB SCH (11:52)
[2021-09-15 06:04] LABS: Hematocrit 42 % (42-52); Hemoglobin 14.4 g/dL (14.0-18.0); Mean Corpuscular HGB Conc 34 g/dL (31-36); Mean Corpuscular Hemoglobin 30 pg (27-31); Mean Corpuscular Volume 87 fL (80-94); Mean Platelet Volume 7.7 fL (7.4-10.4); Platelet Count 275 10^3/uL (150-450); Red Blood Count 4.81 10^6 /uL (4.18-5.48); Red Cell Distribution Width 14 % (10-15); White Blood Count 11.6 10^3/uL (3.5-10.8)
[2021-09-15 06:10] LABS: INR 1.18 (0.86-1.15)
[2021-09-15 06:19] LABS: Albumin 3.1 g/dL (3.2-5.2); Albumin/Globulin Ratio 1.1 (1-3); Calcium 8.8 mg/dL (8.6-10.3); Globulin 2.9 g/dL (2-4); Magnesium 2.1 mg/dL (1.9-2.7); Potassium 4.3 mmol/L (3.5-5.0); Total Bilirubin 0.6 mg/dL (0.2-1.0); eGFR CKD-EPI 82.1 (>60)
[2021-09-15] MEDS: Enoxaparin 40 MG/0.4 ML SYR SUBCUT SCH ×2 (08:45→20:17)
[2021-09-15] MEDS: Remdesivir 100 mg Vial 100 MG in NS 0.9% 250 ml 230 ML IV SCH (08:45)
[2021-09-15] MEDS ORDERED: Furosemide 20 mg/2 ml IV VIAL IV SLOW PU ONE ×2 (10:43→15:51)
[2021-09-15] MEDS: BARICITINIB 2 MG PO SCH (12:02)
[2021-09-15] MEDS: cefTRIAXone 1 gm/50 mL NS BAG 1 GM/50 ML BAG IVPB SCH (12:02)
[2021-09-16 07:20] LABS: Hematocrit 44 % (42-52); Mean Corpuscular HGB Conc 34 g/dL (31-36); Mean Corpuscular Hemoglobin 30 pg (27-31); Mean Corpuscular Volume 88 fL (80-94); Mean Platelet Volume 7.6 fL (7.4-10.4); Platelet Count 301 10^3/uL (150-450); Red Blood Count 5.05 10^6 /uL (4.18-5.48); Red Cell Distribution Width 14 % (10-15); White Blood Count 12.1 10^3/uL (3.5-10.8)
[2021-09-16 07:42] LABS: Calcium 9.1 mg/dL (8.6-10.3); Magnesium 2.2 mg/dL (1.9-2.7); Potassium 4.2 mmol/L (3.5-5.0); eGFR CKD-EPI 72.6 (>60)
[2021-09-16 08:12] LABS: INR 1.18 (0.86-1.15)
[2021-09-16] MEDS: Enoxaparin 40 MG/0.4 ML SYR SUBCUT SCH (08:53)
[2021-09-16] MEDS: Remdesivir 100 mg Vial 100 MG in NS 0.9% 250 ml 230 ML IV SCH (08:56)
[2021-09-16] MEDS: BARICITINIB 2 MG PO SCH (11:06)
[2021-09-16] MEDS: cefTRIAXone 1 gm/50 mL NS BAG 1 GM/50 ML BAG IVPB SCH (11:09)
[2021-09-16] MEDS ORDERED: Furosemide 20 mg/2 ml IV VIAL IV SLOW PU ONE (12:23)
[2021-09-16 16:20] LABS: PCO2 Arterial 23 mmHg (35-45); PO2 Arterial 78 mmHg (80-100)
[2021-09-16] MEDS: methylPREDNISolone SOD 40 mg/ml 1 ml VIAL IV SCH (17:08)
[2021-09-16] MEDS: Enoxaparin 80 MG/0.8 ML SYR SUBCUT SCH (17:08)
[2021-09-16] MEDS: Pantoprazole VIAL 40 MG VIAL IV SCH (17:08)
[2021-09-16] MEDS: Azithromycin 500 mg/250 ml NS 500 MG/250 ML BAG IVPB SCH (17:09)
[2021-09-17] MEDS: methylPREDNISolone SOD 40 mg/ml 1 ml VIAL IV SCH ×3 (00:52→16:03)
[2021-09-17] MEDS: Pantoprazole VIAL 40 MG VIAL IV SCH ×2 (04:39→16:03)
[2021-09-17 04:46] LABS: Hematocrit 44 % (42-52); Hemoglobin 15.2 g/dL (14.0-18.0); Mean Corpuscular HGB Conc 34 g/dL (31-36); Mean Corpuscular Hemoglobin 30 pg (27-31); Mean Corpuscular Volume 88 fL (80-94); Mean Platelet Volume 7.6 fL (7.4-10.4); Platelet Count 300 10^3/uL (150-450); Red Blood Count 5.06 10^6 /uL (4.18-5.48); Red Cell Distribution Width 14 % (10-15); White Blood Count 11.8 10^3/uL (3.5-10.8)
[2021-09-17 05:01] LABS: Potassium 4.3 mmol/L (3.5-5.0)
[2021-09-17 05:02] LABS: Calcium 8.8 mg/dL (8.6-10.3); Magnesium 2.2 mg/dL (1.9-2.7); Phosphorus 4.3 mg/dL (2.5-5.0); eGFR CKD-EPI 91.7 (>60)
[2021-09-17 05:12] LABS: INR 1.17 (0.86-1.15)
[2021-09-17] MEDS: Enoxaparin 80 MG/0.8 ML SYR SUBCUT SCH ×2 (08:41→20:28)
[2021-09-17] MEDS: cefTRIAXone 1 gm/50 mL NS BAG 1 GM/50 ML BAG IVPB SCH (09:02)
[2021-09-17 09:12] LABS: ABS Basophils 0.1 10^3/ul (0-0.2); ABS Lymphocytes 0.7 10^3/ul (1.0-4.8); ABS Monocytes 0.5 10^3/ul (0-0.8); ABS Neutrophils 10.6 10^3/ul (1.5-7.7); Lymphocyte % 6.1 %; Nucleated Red Blood Cells % 0.1
[2021-09-17 09:14] LABS: RBC Morphology Normal (Normal)
[2021-09-17] MEDS: BARICITINIB 2 MG PO SCH (12:21)
[2021-09-17] MEDS: Azithromycin 500 mg/250 ml NS 500 MG/250 ML BAG IVPB SCH (16:02)
[2021-09-18] MEDS: methylPREDNISolone SOD 40 mg/ml 1 ml VIAL IV SCH ×3 (05:09→16:23)
[2021-09-18] MEDS: Pantoprazole VIAL 40 MG VIAL IV SCH ×2 (05:09→16:23)
[2021-09-18 06:42] LABS: Hematocrit 45 % (42-52); Hemoglobin 15.5 g/dL (14.0-18.0); Mean Corpuscular HGB Conc 34 g/dL (31-36); Mean Corpuscular Hemoglobin 30 pg (27-31); Mean Corpuscular Volume 88 fL (80-94); Mean Platelet Volume 7.8 fL (7.4-10.4); Platelet Count 329 10^3/uL (150-450); Red Blood Count 5.15 10^6 /uL (4.18-5.48); Red Cell Distribution Width 14 % (10-15); White Blood Count 15.3 10^3/uL (3.5-10.8)
[2021-09-18 07:20] LABS: Albumin/Globulin Ratio 0.9 (1-3); Calcium 8.8 mg/dL (8.6-10.3); Globulin 3.4 g/dL (2-4); Potassium 4.5 mmol/L (3.5-5.0); Total Bilirubin 0.7 mg/dL (0.2-1.0); Total Protein 6.4 g/dL (6.4-8.9); eGFR CKD-EPI 90.5 (>60)
[2021-09-18 08:03] LABS: ABS Lymphocytes 0.6 10^3/ul (1.0-4.8); ABS Monocytes 0.9 10^3/ul (0-0.8); ABS Neutrophils 13.8 10^3/ul (1.5-7.7); Lymphocyte % 4.1 %
[2021-09-18] MEDS ORDERED: Furosemide 40 mg/4 ml IV VIAL IV SLOW PU ONE (08:22)
[2021-09-18] MEDS: Enoxaparin 80 MG/0.8 ML SYR SUBCUT SCH ×2 (09:15→20:54)
[2021-09-18] MEDS: cefTRIAXone 1 gm/50 mL NS BAG 1 GM/50 ML BAG IVPB SCH (09:38)
[2021-09-18] MEDS: BARICITINIB 2 MG PO SCH (13:21)
[2021-09-18] MEDS: Azithromycin 500 mg/250 ml NS 500 MG/250 ML BAG IVPB SCH (16:38)
[2021-09-18] MEDS: Insulin ISOPH/REG 70/30 SUBCUT SCH (17:18)
[2021-09-19] MEDS: methylPREDNISolone SOD 40 mg/ml 1 ml VIAL IV SCH ×3 (00:27→16:12)
[2021-09-19 05:13] LABS: Hematocrit 45 % (42-52); Hemoglobin 15.4 g/dL (14.0-18.0); Mean Corpuscular HGB Conc 35 g/dL (31-36); Mean Corpuscular Hemoglobin 30 pg (27-31); Mean Corpuscular Volume 87 fL (80-94); Platelet Count 315 10^3/uL (150-450); Red Blood Count 5.12 10^6 /uL (4.18-5.48); Red Cell Distribution Width 14 % (10-15)
[2021-09-19 05:18] LABS: ABS Lymphocytes 0.4 10^3/ul (1.0-4.8); ABS Monocytes 0.6 10^3/ul (0-0.8); Lymphocyte % 3.3 %
[2021-09-19] MEDS: Pantoprazole VIAL 40 MG VIAL IV SCH ×2 (05:19→16:12)
[2021-09-19 05:39] LABS: Calcium 8.8 mg/dL (8.6-10.3); Globulin 3.1 g/dL (2-4); Potassium 4.8 mmol/L (3.5-5.0); Total Bilirubin 0.6 mg/dL (0.2-1.0); Total Protein 6.1 g/dL (6.4-8.9); eGFR CKD-EPI 73.4 (>60)
[2021-09-19] MEDS ORDERED: Furosemide 40 mg/4 ml IV VIAL IV ONE (08:15)
[2021-09-19] MEDS: Enoxaparin 80 MG/0.8 ML SYR SUBCUT SCH ×2 (09:18→20:15)
[2021-09-19] MEDS: Insulin ISOPH/REG 70/30 SUBCUT SCH ×2 (09:18→16:07)
[2021-09-19] MEDS: cefTRIAXone 1 gm/50 mL NS BAG 1 GM/50 ML BAG IVPB SCH (09:28)
[2021-09-19] MEDS: BARICITINIB 2 MG PO SCH (13:07)
[2021-09-20] MEDS: methylPREDNISolone SOD 40 mg/ml 1 ml VIAL IV SCH ×2 (00:57→08:18)
[2021-09-20] MEDS: Pantoprazole VIAL 40 MG VIAL IV SCH ×2 (05:45→15:38)
[2021-09-20 06:24] LABS: Hematocrit 45 % (42-52); Hemoglobin 15.6 g/dL (14.0-18.0); Mean Corpuscular HGB Conc 34 g/dL (31-36); Mean Corpuscular Hemoglobin 30 pg (27-31); Mean Corpuscular Volume 87 fL (80-94); Platelet Count 296 10^3/uL (150-450); Red Blood Count 5.19 10^6 /uL (4.18-5.48); Red Cell Distribution Width 13 % (10-15); White Blood Count 12.7 10^3/uL (3.5-10.8)
[2021-09-20 06:49] LABS: Calcium 8.6 mg/dL (8.6-10.3); Magnesium 2.4 mg/dL (1.9-2.7); Potassium 4.3 mmol/L (3.5-5.0); eGFR CKD-EPI 78.4 (>60)
[2021-09-20 06:52] LABS: ABS Lymphocytes 0.4 10^3/ul (1.0-4.8); ABS Monocytes 0.6 10^3/ul (0-0.8); ABS Neutrophils 11.7 10^3/ul (1.5-7.7); Lymphocyte % 3.3 %; Nucleated Red Blood Cells % 0.1
[2021-09-20] MEDS: Enoxaparin 80 MG/0.8 ML SYR SUBCUT SCH ×2 (08:09→21:41)
[2021-09-20] MEDS: Insulin ISOPH/REG 70/30 SUBCUT SCH ×2 (08:17→15:46)
[2021-09-20] MEDS: cefTRIAXone 1 gm/50 mL NS BAG 1 GM/50 ML BAG IVPB SCH (09:29)
[2021-09-20] MEDS: BARICITINIB 2 MG PO SCH (11:43)
[2021-09-20] MEDS: methylPREDNISolone 125 mg 2 ML VIAL IV SCH (15:38)
[2021-09-20] MEDS ORDERED: methylPREDNISolone SOD 40 mg/ml 1 ml VIAL IV SCH (16:00)
[2021-09-21] MEDS: methylPREDNISolone 125 mg 2 ML VIAL IV SCH ×2 (00:23→08:29)
[2021-09-21] MEDS: Pantoprazole VIAL 40 MG VIAL IV SCH (04:50)
[2021-09-21 04:58] LABS: Hematocrit 43 % (42-52); Hemoglobin 15.3 g/dL (14.0-18.0); Mean Corpuscular HGB Conc 35 g/dL (31-36); Mean Corpuscular Hemoglobin 31 pg (27-31); Mean Corpuscular Volume 87 fL (80-94); Mean Platelet Volume 7.9 fL (7.4-10.4); Platelet Count 265 10^3/uL (150-450); Red Blood Count 4.98 10^6 /uL (4.18-5.48); Red Cell Distribution Width 14 % (10-15)
[2021-09-21 05:05] LABS: ABS Lymphocytes 0.3 10^3/ul (1.0-4.8); ABS Monocytes 0.8 10^3/ul (0-0.8); Lymphocyte % 2.4 %
[2021-09-21 05:14] LABS: Calcium 8.4 mg/dL (8.6-10.3); Magnesium 2.5 mg/dL (1.9-2.7); Potassium 4.3 mmol/L (3.5-5.0); eGFR CKD-EPI 78.4 (>60)
[2021-09-21] MEDS: Insulin ISOPH/REG 70/30 SUBCUT SCH (08:02)
[2021-09-21] MEDS: Enoxaparin 80 MG/0.8 ML SYR SUBCUT SCH ×2 (08:29→20:37)
[2021-09-21] MEDS: cefTRIAXone 1 gm/50 mL NS BAG 1 GM/50 ML BAG IVPB SCH (08:30)
[2021-09-21] MEDS: BARICITINIB 2 MG PO SCH (13:04)
[2021-09-22] MEDS: Albuterol HFA INHALER 8 gm MDI INH PRN (02:36)
[2021-09-22 05:15] LABS: Hematocrit 46 % (42-52); Hemoglobin 15.7 g/dL (14.0-18.0); Mean Corpuscular HGB Conc 34 g/dL (31-36); Mean Corpuscular Hemoglobin 30 pg (27-31); Mean Corpuscular Volume 87 fL (80-94); Platelet Count 245 10^3/uL (150-450); Red Blood Count 5.25 10^6 /uL (4.18-5.48); Red Cell Distribution Width 14 % (10-15); White Blood Count 12.9 10^3/uL (3.5-10.8)
[2021-09-22 05:19] LABS: ABS Lymphocytes 0.9 10^3/ul (1.0-4.8); ABS Monocytes 0.9 10^3/ul (0-0.8); ABS Neutrophils 11.1 10^3/ul (1.5-7.7); Eosinophil % 0.1 %; Lymphocyte % 6.9 %; Nucleated Red Blood Cells % 0.1
[2021-09-22 07:35] LABS: Calcium 8.5 mg/dL (8.6-10.3); Magnesium 2.4 mg/dL (1.9-2.7); Phosphorus 2.8 mg/dL (2.5-5.0); Potassium 4.2 mmol/L (3.5-5.0); eGFR CKD-EPI 81.1 (>60)
[2021-09-22] MEDS: Enoxaparin 80 MG/0.8 ML SYR SUBCUT SCH ×2 (08:43→21:37)
[2021-09-22] MEDS: methylPREDNISolone SOD 40 mg/ml 1 ml VIAL IV SCH (08:44)
[2021-09-22] MEDS: BARICITINIB 2 MG PO SCH (12:56)
[2021-09-23 05:16] LABS: Hematocrit 46 % (42-52); Hemoglobin 15.6 g/dL (14.0-18.0); Mean Corpuscular HGB Conc 34 g/dL (31-36); Mean Corpuscular Hemoglobin 30 pg (27-31); Mean Corpuscular Volume 88 fL (80-94); Mean Platelet Volume 8.7 fL (7.4-10.4); Platelet Count 208 10^3/uL (150-450); Red Blood Count 5.18 10^6 /uL (4.18-5.48); Red Cell Distribution Width 14 % (10-15); White Blood Count 11.1 10^3/uL (3.5-10.8)
[2021-09-23 05:19] LABS: ABS Lymphocytes 1.3 10^3/ul (1.0-4.8); ABS Monocytes 0.9 10^3/ul (0-0.8); ABS Neutrophils 8.8 10^3/ul (1.5-7.7); Eosinophil % 0.3 %; Lymphocyte % 11.4 %; Nucleated Red Blood Cells % 0.1
[2021-09-23 05:29] LABS: Calcium 8.5 mg/dL (8.6-10.3); eGFR CKD-EPI 87.2 (>60)
[2021-09-23] MEDS: Enoxaparin 80 MG/0.8 ML SYR SUBCUT SCH ×2 (08:43→22:02)
[2021-09-23] MEDS: methylPREDNISolone SOD 40 mg/ml 1 ml VIAL IV SCH (08:43)
[2021-09-23] MEDS ORDERED: Furosemide 20 mg/2 ml IV VIAL IV ONE (10:14)
[2021-09-23] MEDS: BARICITINIB 2 MG PO SCH (12:00)
[2021-09-24] MEDS ORDERED: Furosemide 20 mg/2 ml IV VIAL IV SLOW PU ONE ×2 (07:02→09:16)
[2021-09-24 07:22] LABS: Hematocrit 46 % (42-52); Hemoglobin 15.8 g/dL (14.0-18.0); Mean Corpuscular HGB Conc 34 g/dL (31-36); Mean Corpuscular Hemoglobin 30 pg (27-31); Mean Corpuscular Volume 88 fL (80-94); Mean Platelet Volume 8.7 fL (7.4-10.4); Platelet Count 201 10^3/uL (150-450); Red Blood Count 5.26 10^6 /uL (4.18-5.48); Red Cell Distribution Width 14 % (10-15); White Blood Count 11.3 10^3/uL (3.5-10.8)
[2021-09-24 07:40] LABS: Calcium 8.7 mg/dL (8.6-10.3); Magnesium 2.2 mg/dL (1.9-2.7); Potassium 4.2 mmol/L (3.5-5.0)
[2021-09-24 08:27] LABS: ABS Eosinophils 0.1 10^3/ul (0-0.6); ABS Lymphocytes 1.3 10^3/ul (1.0-4.8); ABS Monocytes 0.9 10^3/ul (0-0.8); Eosinophil % 0.5 %; Lymphocyte % 11.8 %; Nucleated Red Blood Cells % 0.1
[2021-09-24 09:41] LABS: PCO2 Arterial 30 mmHg (35-45)
[2021-09-24 09:42] LABS: PO2 Arterial 57 mmHg (80-100)
[2021-09-24] MEDS: Enoxaparin 80 MG/0.8 ML SYR SUBCUT SCH ×2 (09:57→20:08)
[2021-09-24] MEDS: methylPREDNISolone SOD 40 mg/ml 1 ml VIAL IV SCH (10:00)
[2021-09-24] MEDS: BARICITINIB 2 MG PO SCH (12:46)
[2021-09-25] MEDS: Albuterol HFA INHALER 8 gm MDI INH PRN (08:23)
[2021-09-25] MEDS: Enoxaparin 80 MG/0.8 ML SYR SUBCUT SCH ×2 (08:24→20:20)
[2021-09-25] MEDS: BARICITINIB 2 MG PO SCH (13:13)
[2021-09-26] MEDS: Enoxaparin 80 MG/0.8 ML SYR SUBCUT SCH (07:25)
[2021-09-26] MEDS: Enoxaparin 60 MG/0.6 ML SYR SUBCUT SCH (19:22)
[2021-09-27 05:26] LABS: Hematocrit 45 % (42-52); Hemoglobin 15.5 g/dL (14.0-18.0); Mean Corpuscular HGB Conc 34 g/dL (31-36); Mean Corpuscular Hemoglobin 30 pg (27-31); Mean Corpuscular Volume 88 fL (80-94); Mean Platelet Volume 8.3 fL (7.4-10.4); Platelet Count 162 10^3/uL (150-450); Red Blood Count 5.16 10^6 /uL (4.18-5.48); Red Cell Distribution Width 14 % (10-15); White Blood Count 10.5 10^3/uL (3.5-10.8)
[2021-09-27 05:36] LABS: ABS Eosinophils 0.1 10^3/ul (0-0.6); ABS Lymphocytes 1.4 10^3/ul (1.0-4.8); ABS Monocytes 0.9 10^3/ul (0-0.8); ABS Neutrophils 8.1 10^3/ul (1.5-7.7); Eosinophil % 0.8 %; Lymphocyte % 13.3 %; Nucleated Red Blood Cells % 0.1
[2021-09-27 05:41] LABS: Calcium 8.7 mg/dL (8.6-10.3); Potassium 3.8 mmol/L (3.5-5.0); eGFR CKD-EPI 76.6 (>60)
[2021-09-27] MEDS ORDERED: Potassium Chlor 20 meq TAB.ER PO ONE (07:25)
[2021-09-27] MEDS: Enoxaparin 60 MG/0.6 ML SYR SUBCUT SCH ×2 (08:52→22:23)
[2021-09-28 04:38] LABS: Hematocrit 43 % (42-52); Hemoglobin 14.3 g/dL (14.0-18.0); Mean Corpuscular HGB Conc 34 g/dL (31-36); Mean Corpuscular Hemoglobin 30 pg (27-31); Mean Corpuscular Volume 89 fL (80-94); Mean Platelet Volume 8.5 fL (7.4-10.4); Platelet Count 148 10^3/uL (150-450); Red Blood Count 4.79 10^6 /uL (4.18-5.48); Red Cell Distribution Width 14 % (10-15); White Blood Count 10.1 10^3/uL (3.5-10.8)
[2021-09-28 04:59] LABS: Calcium 8.5 mg/dL (8.6-10.3); Magnesium 1.9 mg/dL (1.9-2.7); Phosphorus 3.4 mg/dL (2.5-5.0)
[2021-09-28 05:11] LABS: ABS Eosinophils 0.1 10^3/ul (0-0.6); ABS Lymphocytes 1.4 10^3/ul (1.0-4.8); ABS Monocytes 0.8 10^3/ul (0-0.8); ABS Neutrophils 7.9 10^3/ul (1.5-7.7); Lymphocyte % 13.4 %
[2021-09-28] MEDS ORDERED: Magnesium Sulfate IV 1GM/100ML 1 GM/100 ML BAG IV ONE (07:49)
[2021-09-28] MEDS: Enoxaparin 60 MG/0.6 ML SYR SUBCUT SCH ×2 (08:53→22:01)
[2021-09-29 05:45] LABS: Hematocrit 42 % (42-52); Hemoglobin 14.3 g/dL (14.0-18.0); Mean Corpuscular HGB Conc 34 g/dL (31-36); Mean Corpuscular Hemoglobin 30 pg (27-31); Mean Corpuscular Volume 88 fL (80-94); Mean Platelet Volume 8.1 fL (7.4-10.4); Platelet Count 127 10^3/uL (150-450); Red Blood Count 4.74 10^6 /uL (4.18-5.48); Red Cell Distribution Width 13 % (10-15)
[2021-09-29 05:51] LABS: ABS Eosinophils 0.1 10^3/ul (0-0.6); ABS Lymphocytes 1.1 10^3/ul (1.0-4.8); ABS Monocytes 0.8 10^3/ul (0-0.8); Eosinophil % 1.3 %; Lymphocyte % 10.9 %
[2021-09-29 06:02] LABS: Calcium 8.5 mg/dL (8.6-10.3); Magnesium 1.9 mg/dL (1.9-2.7); Phosphorus 3.2 mg/dL (2.5-5.0); Potassium 3.6 mmol/L (3.5-5.0); eGFR CKD-EPI 85.1 (>60)
[2021-09-29] MEDS: Enoxaparin 60 MG/0.6 ML SYR SUBCUT SCH ×2 (08:38→20:49)
[2021-09-30 05:19] LABS: Hematocrit 41 % (42-52); Hemoglobin 13.9 g/dL (14.0-18.0); Mean Corpuscular HGB Conc 34 g/dL (31-36); Mean Corpuscular Hemoglobin 30 pg (27-31); Mean Corpuscular Volume 88 fL (80-94); Mean Platelet Volume 8.5 fL (7.4-10.4); Platelet Count 129 10^3/uL (150-450); Red Blood Count 4.63 10^6 /uL (4.18-5.48); Red Cell Distribution Width 14 % (10-15); White Blood Count 10.2 10^3/uL (3.5-10.8)
[2021-09-30 05:23] LABS: ABS Lymphocytes 0.7 10^3/ul (1.0-4.8); ABS Monocytes 0.5 10^3/ul (0-0.8); ABS Neutrophils 9.1 10^3/ul (1.5-7.7); Eosinophil % 0.1 %; Lymphocyte % 6.5 %
[2021-09-30 05:33] LABS: Calcium 8.3 mg/dL (8.6-10.3); Magnesium 1.9 mg/dL (1.9-2.7); Phosphorus 3.3 mg/dL (2.5-5.0); eGFR CKD-EPI 90.5 (>60)
[2021-09-30] MEDS: Enoxaparin 60 MG/0.6 ML SYR SUBCUT SCH ×2 (09:25→20:17)
[2021-10-01] MEDS: Enoxaparin 60 MG/0.6 ML SYR SUBCUT SCH ×2 (10:01→22:19)
[2021-10-01] MEDS ORDERED: Furosemide 40 mg/4 ml IV VIAL IV ONE (11:28)
[2021-10-01 11:37] LABS: Hematocrit 42 % (42-52); Hemoglobin 14.3 g/dL (14.0-18.0); Mean Corpuscular HGB Conc 34 g/dL (31-36); Mean Corpuscular Hemoglobin 30 pg (27-31); Mean Corpuscular Volume 89 fL (80-94); Mean Platelet Volume 7.7 fL (7.4-10.4); Platelet Count 126 10^3/uL (150-450); Red Blood Count 4.75 10^6 /uL (4.18-5.48); Red Cell Distribution Width 14 % (10-15); White Blood Count 11.9 10^3/uL (3.5-10.8)
[2021-10-01 11:44] LABS: ABS Eosinophils 0.1 10^3/ul (0-0.6); ABS Lymphocytes 1.1 10^3/ul (1.0-4.8); ABS Monocytes 0.5 10^3/ul (0-0.8); ABS Neutrophils 10.1 10^3/ul (1.5-7.7); Eosinophil % 1.1 %; Lymphocyte % 9.2 %
[2021-10-01 12:18] LABS: Calcium 9.2 mg/dL (8.6-10.3); Potassium 4.6 mmol/L (3.5-5.0); eGFR CKD-EPI 64.9 (>60)
[2021-10-01] MEDS ORDERED: methylPREDNISolone SOD 40 mg/ml 1 ml VIAL IV ONE (16:01)
[2021-10-02] MEDS: Enoxaparin 60 MG/0.6 ML SYR SUBCUT SCH ×2 (09:48→19:38)
[2021-10-02 16:39] LABS: Hematocrit 41 % (42-52); Hemoglobin 14.2 g/dL (14.0-18.0); Mean Corpuscular HGB Conc 34 g/dL (31-36); Mean Corpuscular Hemoglobin 30 pg (27-31); Mean Corpuscular Volume 88 fL (80-94); Mean Platelet Volume 7.8 fL (7.4-10.4); Platelet Count 116 10^3/uL (150-450); Red Blood Count 4.68 10^6 /uL (4.18-5.48); Red Cell Distribution Width 14 % (10-15); White Blood Count 12.4 10^3/uL (3.5-10.8)
[2021-10-02 17:10] LABS: ABS Lymphocytes 0.5 10^3/ul (1.0-4.8); ABS Monocytes 0.4 10^3/ul (0-0.8); ABS Neutrophils 11.5 10^3/ul (1.5-7.7); Eosinophil % 0.1 %; Lymphocyte % 4.1 %
[2021-10-02 17:38] LABS: Calcium 9.3 mg/dL (8.6-10.3); Potassium 4.9 mmol/L (3.5-5.0); eGFR CKD-EPI 67.5 (>60)
[2021-10-03] MEDS ORDERED: Furosemide 40 mg/4 ml IV VIAL IV ONE (07:55)
[2021-10-03 08:31] LABS: PCO2 Arterial 35 mmHg (35-45)
[2021-10-03 08:32] LABS: PO2 Arterial 44 mmHg (80-100)
[2021-10-03] MEDS ORDERED: Albuterol/Ipratropium NEB.SOL (2.5/0.5 MG) 3 ML NEB.SOLN INH PRN (09:25)
[2021-10-03] MEDS ORDERED: Albuterol 2.5mg/3 ml (0.083%) NEB.SOLN INH ONE (09:32)
[2021-10-03] MEDS: Albuterol/Ipratropium NEB.SOL (2.5/0.5 MG) 3 ML NEB.SOLN INH SCH ×5 (09:35→23:09)
[2021-10-03] MEDS: Enoxaparin 60 MG/0.6 ML SYR SUBCUT SCH ×2 (10:23→21:03)
[2021-10-03] MEDS ORDERED: Pantoprazole VIAL 40 MG VIAL ONE (10:27)
[2021-10-03] MEDS: Pantoprazole VIAL 40 MG VIAL IV SCH (10:28)
[2021-10-03] MEDS ORDERED: methylPREDNISolone SOD 40 mg/ml 1 ml VIAL ONE (10:29)
[2021-10-03 10:57] LABS: PCO2 Arterial 32 mmHg (35-45); PO2 Arterial 65 mmHg (80-100)
[2021-10-03] MEDS ORDERED: methylPREDNISolone SOD 40 mg/ml 1 ml VIAL IV SCH (11:00)
[2021-10-03] MEDS: methylPREDNISolone SOD 40 mg/ml 1 ml VIAL IV SCH (21:03)
[2021-10-04] MEDS: Albuterol/Ipratropium NEB.SOL (2.5/0.5 MG) 3 ML NEB.SOLN INH SCH ×2 (03:19→08:05)
[2021-10-04 05:42] LABS: Hematocrit 41 % (42-52); Hemoglobin 13.9 g/dL (14.0-18.0); Mean Corpuscular HGB Conc 34 g/dL (31-36); Mean Corpuscular Hemoglobin 30 pg (27-31); Mean Corpuscular Volume 88 fL (80-94); Mean Platelet Volume 7.8 fL (7.4-10.4); Platelet Count 122 10^3/uL (150-450); Red Blood Count 4.62 10^6 /uL (4.18-5.48); Red Cell Distribution Width 14 % (10-15); White Blood Count 10.8 10^3/uL (3.5-10.8)
[2021-10-04] MEDS: methylPREDNISolone SOD 40 mg/ml 1 ml VIAL IV SCH ×3 (05:43→21:09)
[2021-10-04 06:05] LABS: ABS Lymphocytes 0.5 10^3/ul (1.0-4.8); ABS Monocytes 0.3 10^3/ul (0-0.8); Eosinophil % 0.1 %; Lymphocyte % 4.3 %; Nucleated Red Blood Cells % 0.1
[2021-10-04 06:23] LABS: Calcium 8.9 mg/dL (8.6-10.3); Phosphorus 4.5 mg/dL (2.5-5.0); Potassium 4.3 mmol/L (3.5-5.0); eGFR CKD-EPI 75.8 (>60)
[2021-10-04] MEDS ORDERED: Albuterol/Ipratropium NEB.SOL (2.5/0.5 MG) 3 ML NEB.SOLN INH PRN (08:12)
[2021-10-04] MEDS ORDERED: Furosemide 40 mg/4 ml IV VIAL IV ONE (10:15)
[2021-10-04] MEDS: Pantoprazole VIAL 40 MG VIAL IV SCH (11:15)
[2021-10-04] MEDS: Enoxaparin 60 MG/0.6 ML SYR SUBCUT SCH ×2 (11:15→20:03)
[2021-10-04] MEDS ORDERED: Dextrose 50% Syringe 50 ml 25 GM/50 ML SYRINGE IV PUSH PRN (13:55)
[2021-10-04] MEDS ORDERED: Senna TAB 8.6 mg TAB PO PRN (14:42)
[2021-10-04] MEDS ORDERED: Polyethylene Glycol 3350 17 GM PACKET ONE (15:41)
[2021-10-04] MEDS: Polyethylene Glycol 3350 17 GM PACKET PO SCH (15:44)
[2021-10-05 06:24] LABS: Hematocrit 47 % (42-52); Hemoglobin 15.8 g/dL (14.0-18.0); Mean Corpuscular HGB Conc 34 g/dL (31-36); Mean Corpuscular Hemoglobin 30 pg (27-31); Mean Corpuscular Volume 88 fL (80-94); Mean Platelet Volume 7.8 fL (7.4-10.4); Platelet Count 159 10^3/uL (150-450); Red Blood Count 5.28 10^6 /uL (4.18-5.48); Red Cell Distribution Width 14 % (10-15); White Blood Count 15.7 10^3/uL (3.5-10.8)
[2021-10-05] MEDS: methylPREDNISolone SOD 40 mg/ml 1 ml VIAL IV SCH ×3 (06:25→21:14)
[2021-10-05 06:29] LABS: ABS Basophils 0.1 10^3/ul (0-0.2); ABS Lymphocytes 0.9 10^3/ul (1.0-4.8); ABS Monocytes 0.7 10^3/ul (0-0.8); Eosinophil % 0.1 %; Lymphocyte % 5.7 %
[2021-10-05 06:35] LABS: Calcium 9.7 mg/dL (8.6-10.3); Magnesium 2.1 mg/dL (1.9-2.7); Potassium 4.1 mmol/L (3.5-5.0)
[2021-10-05 06:41] LABS: eGFR CKD-EPI 74.2 (>60)
[2021-10-05] MEDS: Pantoprazole VIAL 40 MG VIAL IV SCH (08:50)
[2021-10-05] MEDS: Enoxaparin 60 MG/0.6 ML SYR SUBCUT SCH ×2 (08:50→21:14)
[2021-10-05] MEDS ORDERED: Furosemide 20 mg/2 ml IV VIAL IV ONE (10:30)
[2021-10-05] MEDS: Polyethylene Glycol 3350 17 GM PACKET PO SCH (13:57)
[2021-10-06 06:21] LABS: Hematocrit 44 % (42-52); Hemoglobin 14.9 g/dL (14.0-18.0); Mean Corpuscular HGB Conc 34 g/dL (31-36); Mean Corpuscular Hemoglobin 30 pg (27-31); Mean Corpuscular Volume 88 fL (80-94); Mean Platelet Volume 7.7 fL (7.4-10.4); Platelet Count 152 10^3/uL (150-450); Red Blood Count 4.94 10^6 /uL (4.18-5.48); Red Cell Distribution Width 14 % (10-15); White Blood Count 12.6 10^3/uL (3.5-10.8)
[2021-10-06 06:22] LABS: ABS Basophils 0.1 10^3/ul (0-0.2); ABS Lymphocytes 0.7 10^3/ul (1.0-4.8); ABS Monocytes 0.6 10^3/ul (0-0.8); ABS Neutrophils 11.2 10^3/ul (1.5-7.7); Lymphocyte % 5.9 %
[2021-10-06] MEDS: methylPREDNISolone SOD 40 mg/ml 1 ml VIAL IV SCH ×2 (06:25→17:47)
[2021-10-06 06:40] LABS: Calcium 9.3 mg/dL (8.6-10.3); Magnesium 2.1 mg/dL (1.9-2.7); Phosphorus 4.4 mg/dL (2.5-5.0); Potassium 4.3 mmol/L (3.5-5.0); eGFR CKD-EPI 82.1 (>60)
[2021-10-06] MEDS: Polyethylene Glycol 3350 17 GM PACKET PO SCH (08:43)
[2021-10-06] MEDS: Enoxaparin 60 MG/0.6 ML SYR SUBCUT SCH ×2 (08:43→20:28)
[2021-10-06] MEDS ORDERED: Furosemide 20 mg/2 ml IV VIAL IV ONE (09:17)
[2021-10-07] MEDS: methylPREDNISolone SOD 40 mg/ml 1 ml VIAL IV SCH (06:32)
[2021-10-07 06:38] LABS: Hematocrit 43 % (42-52); Hemoglobin 14.8 g/dL (14.0-18.0); Mean Corpuscular HGB Conc 34 g/dL (31-36); Mean Corpuscular Hemoglobin 31 pg (27-31); Mean Corpuscular Volume 89 fL (80-94); Mean Platelet Volume 7.9 fL (7.4-10.4); Platelet Count 160 10^3/uL (150-450); Red Blood Count 4.85 10^6 /uL (4.18-5.48); Red Cell Distribution Width 14 % (10-15); White Blood Count 10.6 10^3/uL (3.5-10.8)
[2021-10-07 08:05] LABS: RBC Morphology Normal (Normal)
[2021-10-07 08:06] LABS: ABS Monocytes 0.8 10^3/ul (0-0.8); ABS Neutrophils 8.8 10^3/ul (1.5-7.7); Lymphocyte % 9.8 %
[2021-10-07 08:19] LABS: Calcium 9.1 mg/dL (8.6-10.3); Magnesium 2.1 mg/dL (1.9-2.7); Potassium 4.3 mmol/L (3.5-5.0)
[2021-10-07 08:25] LABS: Phosphorus 4.5 mg/dL (2.5-5.0)
[2021-10-07] MEDS ORDERED: Furosemide 20 mg/2 ml IV VIAL IV ONE (09:03)
[2021-10-07] MEDS: Enoxaparin 60 MG/0.6 ML SYR SUBCUT SCH ×2 (09:30→20:32)
[2021-10-07] MEDS: Polyethylene Glycol 3350 17 GM PACKET PO SCH (09:31)
[2021-10-07] MEDS ORDERED: Saline NASAL SPRAY 0.65% BTL BOTH NARES PRN (13:29)
[2021-10-08 04:31] LABS: Hematocrit 44 % (42-52); Hemoglobin 15.1 g/dL (14.0-18.0); Mean Corpuscular HGB Conc 34 g/dL (31-36); Mean Corpuscular Hemoglobin 30 pg (27-31); Mean Corpuscular Volume 88 fL (80-94); Mean Platelet Volume 7.5 fL (7.4-10.4); Platelet Count 167 10^3/uL (150-450); Red Blood Count 5.02 10^6 /uL (4.18-5.48); Red Cell Distribution Width 14 % (10-15); White Blood Count 9.9 10^3/uL (3.5-10.8)
[2021-10-08 04:47] LABS: Albumin/Globulin Ratio 1.1 (1-3); Globulin 2.8 g/dL (2-4); Total Bilirubin 0.6 mg/dL (0.2-1.0); Total Protein 5.8 g/dL (6.4-8.9); eGFR CKD-EPI 76.6 (>60)
[2021-10-08 05:00] LABS: ABS Eosinophils 0.1 10^3/ul (0-0.6); ABS Lymphocytes 1.6 10^3/ul (1.0-4.8); ABS Monocytes 0.7 10^3/ul (0-0.8); ABS Neutrophils 7.5 10^3/ul (1.5-7.7); Lymphocyte % 15.9 %; Nucleated Red Blood Cells % 0.3
[2021-10-08] MEDS: Enoxaparin 60 MG/0.6 ML SYR SUBCUT SCH (08:54)
[2021-10-08] MEDS: Polyethylene Glycol 3350 17 GM PACKET PO SCH (08:55)
[2021-10-08] MEDS ORDERED: Tiotropium Brom/Olodaterol MDI INH SCH (12:00)
[2021-10-08 17:12] VITALS: BP 111/74
== END 2021-10-08 16:30 | disposition home health service (06) | DRG 137 ==
LOC: ED 18:40 → SUATTDRO 09-12 04:48 → MED 09-12 04:48 → ICU 09-16 15:34 → MED 09-28 16:36 → ICU 10-03 09:35
PROVIDERS: ADMIT Student in an Organized Health Care Education/Training Program; ATTEND Internal Medicine

== ENCOUNTER 2021-10-09 08:20 | Inpatient (IN) ==
[2021-10-09] MEDS ORDERED: Lactated Ringers 1000 ml BAG 1,000 ML IV ONE (08:33)
[2021-10-09 09:07] LABS: PCO2 Arterial 28 mmHg (35-45)
[2021-10-09 09:11] LABS: PO2 Arterial 55 mmHg (80-100)
[2021-10-09 09:12] LABS: Hematocrit 49 % (42-52); Hemoglobin 16.7 g/dL (14.0-18.0); Mean Corpuscular HGB Conc 34 g/dL (31-36); Mean Corpuscular Hemoglobin 30 pg (27-31); Mean Corpuscular Volume 89 fL (80-94); Platelet Count 192 10^3/uL (150-450); Red Blood Count 5.49 10^6 /uL (4.18-5.48); Red Cell Distribution Width 14 % (10-15); White Blood Count 9.8 10^3/uL (3.5-10.8)
[2021-10-09 09:29] LABS: ALT 131 U/L (7-52); AST 27 U/L (13-39); Albumin 3.4 g/dL (3.2-5.2); Albumin/Globulin Ratio 1.1 (1-3); Alkaline Phosphatase 79 U/L (35-149); Anion Gap 10 mmol/L (2-11); Blood Urea Nitrogen 34 mg/dL (6-24); CO2 Carbon Dioxide 25 mmol/L (22-32); Calcium 9.2 mg/dL (8.6-10.3); Chloride 104 mmol/L (101-111); Globulin 3.2 g/dL (2-4); Glucose 136 mg/dL (70-100); Potassium 3.8 mmol/L (3.5-5.0); Sodium 139 mmol/L (135-145); Total Protein 6.6 g/dL (6.4-8.9); eGFR CKD-EPI 76.6 (>60)
[2021-10-09 09:32] LABS: ABS Eosinophils 0.2 10^3/ul (0-0.6); ABS Monocytes 0.9 10^3/ul (0-0.8); ABS Neutrophils 7.7 10^3/ul (1.5-7.7); Lymphocyte % 10.6 %; Nucleated Red Blood Cells % 0.2
[2021-10-09 09:43] LABS: Troponin I 0.04 ng/mL (<0.03)
[2021-10-09] MEDS ORDERED: Iodixanol (CONTRAST) 320 MG/ML 100 ML SDV IV ONE (10:46)
[2021-10-09] MEDS ORDERED: Saline NASAL SPRAY 0.65% BTL BOTH NARES PRN (13:46)
[2021-10-09] MEDS ORDERED: Polyethylene Glycol 3350 17 GM PACKET PO PRN (13:46)
[2021-10-09] MEDS ORDERED: Senna TAB 8.6 mg TAB PO PRN (13:46)
[2021-10-09 14:00] LABS: Troponin I 0.03 ng/mL (<0.03)
[2021-10-09] MEDS: Enoxaparin 40 MG/0.4 ML SYR SUBCUT SCH (14:09)
[2021-10-09] MEDS: Tiotropium Brom/Olodaterol MDI INH SCH (14:14)
[2021-10-09] MEDS ORDERED: Dextrose 50% Syringe 50 ml 25 GM/50 ML SYRINGE IV PUSH PRN (18:35)
[2021-10-10 06:50] LABS: Hematocrit 42 % (42-52); Hemoglobin 14.4 g/dL (14.0-18.0); Mean Corpuscular HGB Conc 34 g/dL (31-36); Mean Corpuscular Hemoglobin 30 pg (27-31); Mean Corpuscular Volume 88 fL (80-94); Mean Platelet Volume 7.6 fL (7.4-10.4); Platelet Count 159 10^3/uL (150-450); Red Cell Distribution Width 15 % (10-15); White Blood Count 8.1 10^3/uL (3.5-10.8)
[2021-10-10 07:00] LABS: ABS Eosinophils 0.4 10^3/ul (0-0.6); ABS Lymphocytes 0.9 10^3/ul (1.0-4.8); ABS Monocytes 0.8 10^3/ul (0-0.8); Eosinophil % 4.8 %; Lymphocyte % 10.6 %; Nucleated Red Blood Cells % 0.1
[2021-10-10 07:08] LABS: Calcium 8.5 mg/dL (8.6-10.3); Magnesium 1.9 mg/dL (1.9-2.7); Phosphorus 3.4 mg/dL (2.5-5.0); Potassium 3.7 mmol/L (3.5-5.0); eGFR CKD-EPI 86.1 (>60)
[2021-10-10] MEDS: Tiotropium Brom/Olodaterol MDI INH SCH (07:53)
[2021-10-10] MEDS: Enoxaparin 40 MG/0.4 ML SYR SUBCUT SCH (15:26)
[2021-10-11] MEDS: Tiotropium Brom/Olodaterol MDI INH SCH (09:04)
[2021-10-11 12:46] VITALS: BP 117/61
[2021-10-11] MEDS: Enoxaparin 40 MG/0.4 ML SYR SUBCUT SCH (13:59)
== END 2021-10-11 14:13 | DRG 137 ==
LOC: ED 08:20 → SUATTDRO 12:54 → EDHOLD 12:54 → MEDTELE 15:08
PROVIDERS: ADMIT Internal Medicine; ATTEND Internal Medicine

== ENCOUNTER 2021-10-11 14:07 | Inpatient (IN) ==
[2021-10-11] MEDS ORDERED: Senna TAB 8.6 mg TAB PO PRN (17:57)
[2021-10-11] MEDS ORDERED: Magnesium Hydroxide LIQ 30 ML UDC PO PRN (17:57)
[2021-10-11] MEDS ORDERED: Dextrose 50% Syringe 50 ml 25 GM/50 ML SYRINGE IV PUSH PRN (18:26)
[2021-10-12] MEDS: Tiotropium Brom/Olodaterol MDI INH SCH (08:24)
[2021-10-12] MEDS: Enoxaparin 40 MG/0.4 ML SYR SUBCUT SCH (14:04)
[2021-10-13 06:35] LABS: Hematocrit 38 % (42-52); Hemoglobin 13.2 g/dL (14.0-18.0); Mean Corpuscular HGB Conc 34 g/dL (31-36); Mean Corpuscular Hemoglobin 30 pg (27-31); Mean Corpuscular Volume 88 fL (80-94); Mean Platelet Volume 7.6 fL (7.4-10.4); Platelet Count 177 10^3/uL (150-450); Red Blood Count 4.37 10^6 /uL (4.18-5.48); Red Cell Distribution Width 14 % (10-15); White Blood Count 8.9 10^3/uL (3.5-10.8)
[2021-10-13 06:38] LABS: ABS Eosinophils 0.1 10^3/ul (0-0.6); ABS Neutrophils 6.7 10^3/ul (1.5-7.7); Eosinophil % 1.4 %; Lymphocyte % 11.5 %; Nucleated Red Blood Cells % 0.2
[2021-10-13 06:50] LABS: Albumin 2.8 g/dL (3.2-5.2); Albumin/Globulin Ratio 1.1 (1-3); Calcium 8.4 mg/dL (8.6-10.3); Globulin 2.6 g/dL (2-4); Potassium 3.6 mmol/L (3.5-5.0); Total Bilirubin 0.6 mg/dL (0.2-1.0); Total Protein 5.4 g/dL (6.4-8.9); eGFR CKD-EPI 86.1 (>60)
[2021-10-13] MEDS: Tiotropium Brom/Olodaterol MDI INH SCH (08:32)
[2021-10-13] MEDS: Enoxaparin 40 MG/0.4 ML SYR SUBCUT SCH (14:14)
[2021-10-14] MEDS: Tiotropium Brom/Olodaterol MDI INH SCH (08:11)
[2021-10-14] MEDS: Enoxaparin 40 MG/0.4 ML SYR SUBCUT SCH (13:48)
[2021-10-14] MEDS: Albuterol HFA INHALER 8 gm MDI INH PRN ×3 (14:02→22:39)
[2021-10-14 21:43] VITALS: BP 111/71
[2021-10-14] MEDS ORDERED: Furosemide 40 mg/4 ml IV VIAL IV SLOW PU ONE (22:20)
[2021-10-14] MEDS ORDERED: Vancomycin per Pharmacy 1 EA NOTE FOLLOW UP SCH (23:45)
[2021-10-14] MEDS ORDERED: Vancomycin 2,000 MG in NS 0.9% 250 ml 250 ML IVPB SCH (23:45)
[2021-10-15] MEDS ORDERED: Cefepime 2 GM in Dextrose 2 GM/50 ML BAG IV SCH
[2021-10-15] MEDS ORDERED: Vancomycin 2,000 MG in NS 0.9% 500 ml BAG 500 ML IVPB ONE
[2021-10-15 00:16] LABS: Hemoglobin 13.8 g/dL (14.0-18.0); Red Blood Count 4.56 10^6 /uL (4.18-5.48); White Blood Count 12.5 10^3/uL (3.5-10.8)
[2021-10-15 00:17] LABS: Hematocrit 40 % (42-52); Mean Corpuscular HGB Conc 35 g/dL (31-36); Mean Corpuscular Hemoglobin 30 pg (27-31); Mean Corpuscular Volume 87 fL (80-94); Mean Platelet Volume 7.6 fL (7.4-10.4); Platelet Count 201 10^3/uL (150-450); Red Cell Distribution Width 14 % (10-15)
[2021-10-15 00:37] LABS: Albumin 3.2 g/dL (3.2-5.2); Calcium 9.3 mg/dL (8.6-10.3); Magnesium 1.7 mg/dL (1.9-2.7); Potassium 3.6 mmol/L (3.5-5.0); Total Protein 6.5 g/dL (6.4-8.9); eGFR CKD-EPI 88.3 (>60)
[2021-10-15 00:38] LABS: C Reactive Protein 172.8 mg/L (<8.01); Globulin 3.3 g/dL (2-4); Total Bilirubin 1.1 mg/dL (0.2-1.0)
[2021-10-15 02:29] LABS: ABS Eosinophils 0.1 10^3/ul (0-0.6); ABS Lymphocytes 0.8 10^3/ul (1.0-4.8); ABS Monocytes 1.3 10^3/ul (0-0.8); ABS Neutrophils 10.4 10^3/ul (1.5-7.7); Eosinophil % 0.4 %; Lymphocyte % 6.1 %
[2021-10-15 02:54] LABS: Urine Appearance Clear; Urine Bilirubin Negative (Negative); Urine Blood 1+ (Negative); Urine Color Yellow; Urine Glucose Negative (Negative); Urine Ketones Trace (Negative); Urine Nitrite Negative (Negative); Urine Protein Negative (Negative); Urine Specific Gravity 1.011 (1.002-1.030); Urine Urobilinogen Negative (Negative)
[2021-10-15 03:05] LABS: Urine Bacteria Absent (Absent); Urine Red Blood Cell Trace(0-2/hpf) (Absent); Urine Squamous Epithelial Cell Present (Absent); Urine White Blood Cell Trace(0-5/hpf) (Absent)
[2021-10-15] MEDS: Albuterol HFA INHALER 8 gm MDI INH PRN (03:27)
[2021-10-15] MEDS ORDERED: Magnesium Sulfate 2 gm BAG 2 GM/50 ML BAG IVPB ONE (03:42)
== END 2021-10-15 03:40 | disposition short-term general hospital (02) | DRG 724 ==
LOC: PMRU 17:06
PROVIDERS: ADMIT Physical Medicine & Rehabilitation; ATTEND Physical Medicine & Rehabilitation

== ENCOUNTER 2021-10-15 04:30 | Inpatient (IN) ==
[2021-10-15] MEDS ORDERED: Dextrose 50% Syringe 50 ml 25 GM/50 ML SYRINGE IV PUSH PRN (04:35)
[2021-10-15] MEDS ORDERED: Polyethylene Glycol 3350 17 GM PACKET PO PRN (04:35)
[2021-10-15] MEDS ORDERED: Saline NASAL SPRAY 0.65% BTL BOTH NARES PRN (04:35)
[2021-10-15] MEDS ORDERED: Senna TAB 8.6 mg TAB PO PRN (04:35)
[2021-10-15] MEDS ORDERED: Magnesium Sulfate 2 gm BAG 2 GM/50 ML BAG IVPB ONE (04:37)
[2021-10-15] MEDS ORDERED: Albuterol HFA INHALER 8 gm MDI INH PRN (04:37)
[2021-10-15] MEDS ORDERED: Vancomycin per Pharmacy 1 EA NOTE FOLLOW UP SCH (05:00)
[2021-10-15] MEDS: Tiotropium Brom/Olodaterol MDI INH SCH (07:57)
[2021-10-15] MEDS ORDERED: Furosemide 40 mg/4 ml IV VIAL IV SLOW PU ONE (08:34)
[2021-10-15] MEDS ORDERED: Piperacillin/Tazobac ADVAN 3.375 GM in NS 0.9% 100 ml BAG 100 ML IV ONE (09:15)
[2021-10-15] MEDS ORDERED: Zosyn per Pharmacy NOTE FOLLOW UP SCH (10:00)
[2021-10-15] MEDS ORDERED: methylPREDNISolone SOD 40 mg/ml 1 ml VIAL IV SCH (10:00)
[2021-10-15] MEDS ORDERED: Cefepime 2 GM in Dextrose 2 GM/50 ML BAG IV SCH (10:00)
[2021-10-15] MEDS ORDERED: Morphine 2 MG/ML SYRINGE IM ONE (13:19)
[2021-10-15] MEDS ORDERED: Morphine 2 MG/ML SYRINGE ONE (13:19)
[2021-10-15] MEDS: Morphine 2 MG/ML SYRINGE IV PRN ×2 (13:22→16:47)
[2021-10-15] MEDS: Enoxaparin 40 MG/0.4 ML SYR SUBCUT SCH (13:25)
[2021-10-15] MEDS ORDERED: Vancomycin 1,500 MG in NS 0.9% 250 ml 250 ML IVPB SCH (14:00)
[2021-10-15] MEDS: ZOSYN 3.375 GM Q8H per EXTENDED INFUSION IV SCH ×2 (16:47→23:53)
[2021-10-15] MEDS: methylPREDNISolone SOD 40 mg/ml 1 ml VIAL IV SCH ×2 (16:47→23:53)
[2021-10-16 05:59] LABS: Hematocrit 40 % (42-52); Hemoglobin 13.5 g/dL (14.0-18.0); Mean Corpuscular HGB Conc 34 g/dL (31-36); Mean Corpuscular Hemoglobin 30 pg (27-31); Mean Corpuscular Volume 88 fL (80-94); Mean Platelet Volume 7.7 fL (7.4-10.4); Platelet Count 134 10^3/uL (150-450); Red Blood Count 4.55 10^6 /uL (4.18-5.48); Red Cell Distribution Width 14 % (10-15)
[2021-10-16 06:05] LABS: ABS Basophils 0.1 10^3/ul (0-0.2); ABS Lymphocytes 0.4 10^3/ul (1.0-4.8); ABS Monocytes 1.2 10^3/ul (0-0.8); ABS Neutrophils 14.4 10^3/ul (1.5-7.7); Lymphocyte % 2.6 %
[2021-10-16 06:08] LABS: INR 1.6 (0.86-1.15)
[2021-10-16 06:15] LABS: C Reactive Protein 261.5 mg/L (<8.01); Calcium 9.2 mg/dL (8.6-10.3); Magnesium 2.5 mg/dL (1.9-2.7); Phosphorus 3.9 mg/dL (2.5-5.0); Potassium 3.9 mmol/L (3.5-5.0); eGFR CKD-EPI 81.1 (>60)
[2021-10-16] MEDS: ZOSYN 3.375 GM Q8H per EXTENDED INFUSION IV SCH ×2 (07:29→16:45)
[2021-10-16] MEDS: Tiotropium Brom/Olodaterol MDI INH SCH (07:49)
[2021-10-16] MEDS ORDERED: Morphine 2 MG/ML SYRINGE IV PRN (10:06)
[2021-10-16] MEDS ORDERED: Lorazepam PYXIS KEY PRN (10:06)
[2021-10-16] MEDS ORDERED: LORazepam 2 mg VIAL 1 ml IV PUSH PRN ×3 (10:06→22:54)
[2021-10-16] MEDS ORDERED: Lorazepam PYXIS KEY ONE (10:20)
[2021-10-16] MEDS ORDERED: LORazepam 2 mg VIAL 1 ml IM ONE (10:20)
[2021-10-16] MEDS ORDERED: LORazepam 2 mg VIAL 1 ml ONE ×2 (10:20→22:57)
[2021-10-16] MEDS: methylPREDNISolone SOD 40 mg/ml 1 ml VIAL IV SCH ×2 (10:54→16:45)
[2021-10-16] MEDS ORDERED: Vancomycin Trough Check NOTE FOLLOW UP ONE (13:30)
[2021-10-16] MEDS: Enoxaparin 40 MG/0.4 ML SYR SUBCUT SCH (14:13)
[2021-10-16] MEDS ORDERED: Morphine 2 MG/ML SYRINGE IV ONE (16:36)
[2021-10-16] MEDS ORDERED: Morphine 2 MG/ML SYRINGE ONE (16:41)
[2021-10-16] MEDS: Morphine 2 MG/ML SYRINGE IV PRN ×3 (18:24→23:24)
[2021-10-17] MEDS ORDERED: LORazepam 2 mg VIAL 1 ml IV PUSH PRN (00:20)
[2021-10-17] MEDS ORDERED: Lorazepam PYXIS KEY PRN (00:20)
[2021-10-17] MEDS ORDERED: Morphine 2 MG/ML SYRINGE IV PRN (00:21)
[2021-10-17] MEDS ORDERED: Morphine ORAL CONCENTRATE 5 MG/0.25 ML ORAL.SYRIN PO PRN (00:22)
[2021-10-17 01:41] VITALS: BP 113/85
[2021-10-17] MEDS ORDERED: Furosemide 20 mg/2 ml IV VIAL IV SLOW PU SCH (09:00)
[2021-10-17] MEDS ORDERED: Morphine 2 MG/ML SYRINGE IM ONE (16:41)
[2021-10-17] MEDS ORDERED: LORazepam 2 mg VIAL 1 ml IM ONE (22:57)
== END 2021-10-17 00:43 | disposition expired | DRG 724 ==
LOC: SUATTDRO 04:32 → ICU 04:32
PROVIDERS: ADMIT Hospitalist; ATTEND Internal Medicine